=== PATIENT | male | born 1950 | race Caucasian/White ===

== ENCOUNTER 2017-08-09 05:40 | Outpatient (CLI) | payer MEDICARE ==
[~2017-08-09] VITALS: Ht 188 cm; Wt 99.8 kg
[~2017-08-09 05:40] MED LIST: NAPR-243 PO; TRM50T PO
[2017-08-09] MEDS ORDERED: HYDR-3820 PO (15:53)
[2017-08-09] MEDS ORDERED: TAMS0.4C2 PO (15:53)
[2017-08-09] MEDS ORDERED: AMIT50TA3 PO (15:53)
[2017-08-09] MEDS ORDERED: ASPI-999 PO (15:53)
== END 2017-08-09 16:02 ==
LOC: PREOP 05:40
PROVIDERS: ATTEND Urology
DX: Z01.818 Encounter for other preprocedural examination (principal); N40.0 Benign prostatic hyperplasia without lower urinary tract symptoms; N43.3 Hydrocele, unspecified

== ENCOUNTER 2017-08-14 05:52 | Day surgery (SDC) | payer MEDICARE, OTHER ==
[~2017-08-14] VITALS: Ht 188 cm; Wt 99.8 kg
[~2017-08-14 05:52] MED LIST changes: +AMIT50TA3 PO; +ASPI-999 PO; +HYDR-3820 PO; +TAMS0.4C2 PO
[2017-08-14 06:15] VITALS: BP 141/59
[2017-08-14] MEDS ORDERED: ceFAZolin INJECTION 1,000 MG in NS (IVPB) 50 ML IV ONE (06:15)
[2017-08-14] MEDS: LACTATED RINGERS 1,000 ML IV PRN ×2 (06:35→09:03)
[2017-08-14] MEDS ORDERED: proPOfol 200 MG/20 ML (DIPRIVAN) VIAL IV ONE (06:38)
[2017-08-14] MEDS ORDERED: LIDOCAINE PF 2% 5 ML (XYLOCAINE) VIAL ONE (06:38)
[2017-08-14] MEDS ORDERED: MIDAZOLAM 2 MG/2 ML (VERSED) VIAL ONE (06:39)
[2017-08-14] MEDS ORDERED: fentaNYL INJECTION 100 MCG/2 ML AMP ONE (06:39)
[2017-08-14] MEDS ORDERED: ONDANSETRON 4 MG/2 ML (SDV) Z0FRAN ONE (06:40)
[2017-08-14] MEDS ORDERED: SEVOFLURANE (ULTANE) 15 ML INHAL SOLN ONE ×4 (06:40→08:20)
[2017-08-14] MEDS ORDERED: DEXAMETHASONE 10 MG/ML (DECADRON) 1 ML VIAL ONE (06:40)
[2017-08-14] MEDS ORDERED: NEOSPORIN + PAIN RELIEF CREAM 15 GM ONE (07:09)
--- NOTE | 2017-08-14 07:11 | Progress Note-Pre Operative ---
Pre-Operative Progress Note H&P Reviewed The H&P was reviewed, patient examined and no changes noted. Date Seen by Provider: Aug 14, 2017 Time Seen by Provider: 07:11 Date H&P Reviewed: Aug 14, 2017 Time H&P Reviewed: 07:11 Pre-Operative Diagnosis: BPH, POSSIBLE OAB, AND RT HYDROCELE LEONIE LAND MD Aug 14, 2017 7:11 am
[2017-08-14] MEDS ORDERED: LIDOCAINE UROJET 2% GEL 10 ML PKG ONE (07:12)
--- NOTE | 2017-08-14 07:12 | Progress Note-Post Operative ---
Post-Operative Progess Note Surgeon (s)/Production Service Manager (s) Surgeon LEONIE LAND MD Production Service Manager: N/A Pre-Operative Diagnosis BPH, POSSIBLE OAB, AND RT HYDROCELE Post-Operative Diagnosis SAME Procedure & Operative Findings Date of Procedure 08/14/17 Procedure Performed/Findings CYSTOSCOPY AND RT HYDROCELECTOMY Anesthesia Type GENERAL Estimated Blood Loss Estimated blood loss (mL): LESS THAN 50CC Specimens/Packing Specimens Removed RT HYDROCELE SAC Packin/4# TONIA DRAIN LEONIE LAND MD Aug 14, 2017 7:12 am
--- NOTE | 2017-08-14 07:15 | Discharge Inst-Urology ---
Discharge Inst-Urology Discharge Medications New, Converted, or Re-newed RX: RX on Chart Patient Instructions/Follow Up Plan Please make appointment to been seen in office in 2 weeks. Rest till then, scrotal support and off ASA Ice to scrotum in RR and at home for 6 hours and then PRN Office tomorrow 9am to DC drain, may shower after that, no bath Keep bowels soft and moving Increase oral fluids for 48 hours and then as needed. Diet and Activity as tolerated. If questions or concerns contact your physician Or seek help at emergency department. LEONIE LAND MD Aug 14, 2017 7:15 am
[2017-08-14] MEDS ORDERED: ONDANSETRON 4 MG/2 ML (SDV) Z0FRAN IVP PRN (08:30)
[2017-08-14] MEDS ORDERED: morphine INJ 10 MG/ML 1ML (SYR OR VIAL) ONE (08:33)
[2017-08-14] MEDS: morphine INJ 10 MG/ML 1ML (SYR OR VIAL) IVP PRN ×2 (08:40→08:50)
[2017-08-14] MEDS: HYDROmorphone 1 MG/ML (DILAUDID) 1 ML SYRINGE IV PRN ×2 (08:59→09:10)
[2017-08-14 09:25] VITALS: BP 140/86
[2017-08-14] MEDS ORDERED: HYDR-3812 PO (09:34)
[2017-08-14] MEDS ORDERED: CEPH-507 PO (09:34)
[2017-08-14 09:55] VITALS: BP 133/98
--- NOTE | 2017-08-14 10:20 | Anesthesia-General Post-Op ---
General Patient Condition Mental Status/LOC: Same as Preop Cardiovascular: Satisfactory Nausea/Vomiting: Absent Respiratory: Satisfactory Pain: Controlled Complications: Absent Post Op Complications Complications None Follow Up Care/Instructions Patient Instructions None needed. Anesthesia/Patient Condition Patient Condition Patient is doing well, no complaints, stable vital signs, no apparent adverse anesthesia problems. No complications reported per nursing. RADHA TOURE CRNA Aug 14, 2017 10:20
[2017-08-14 10:25] VITALS: BP 134/77
--- NOTE | 2017-08-14 14:23 | OPERATIVE REPORT ---
DATE OF SERVICE: 08/14/2017 PREOPERATIVE DIAGNOSES: 1. Benign prostatic hypertrophy, possible overactive bladder. 2. Right hydrocele "moderate." OPERATION PERFORMED: Cystoscopy and right hydrocelectomy. SURGEON: Dejon Land MD ANESTHESIA: General. COMPLICATIONS: None. DESCRIPTION OF PROCEDURE: Under satisfactory general anesthesia, the patient in supine position, genitalia were prepped and draped in the usual sterile fashion. Flexible cystoscope was introduced under vision. The anterior urethra was normal. The prostate was small with mild bladder neck obstruction. Bladder revealed some trabeculations. No bladder tumor or stone visualized. Ureteral orifices normal limits with clear effluxes. Cystoscopy was confirmed in antegrade fashion and the cystoscope was removed. Attention was directed to the hydrocele. The genitalia, abdomen and thigh were prepped and draped in the sterile fashion. An incision was made in the median raphe, carried through the right scrotal compartment. Bleeders were cauterized as the dissection was proceeded. A moderate amount of fluid was suctioned and the hydrocele sac was excised. The edges were sutured with a running hemostatic 3-0 chromic catgut to prevent recurrence as well. Hemostasis was complete. The testicle was replaced inside the scrotum that was drained with the quarter of an inch Louann drain, brought through a separate stab wound at the bottom of the scrotum, secured in position with a 3-0 chromic catgut suture. The dartos was closed with a running 3-0 chromic catgut and the skin with interrupted 4-0 Vicryl. Telfa and fluffs and scrotal support was applied. The patient tolerated the procedure and anesthesia well, was sent to recovery room in stable condition. Job ID: [id number] DocumentID: [id number] Dictated Date: 08/14/2017 08:36:33 Cotton Classer Aide Date: 08/14/2017 14:23:10 Dictated By: DEJON LAND MD
== END 2017-08-14 10:27 | disposition home or self-care (01) ==
LOC: SDC 05:52
PROVIDERS: ATTEND Urology
DX: N43.3 Hydrocele, unspecified (principal); N40.0 Benign prostatic hyperplasia without lower urinary tract symptoms; R01.1 Cardiac murmur, unspecified; Z86.73 Personal history of transient ischemic attack (TIA), and cerebral infarction without residual deficits; Z87.891 Personal history of nicotine dependence; Z79.82 Long term (current) use of aspirin; Z79.899 Other long term (current) drug therapy
CPT/HCPCS: 87081

== ENCOUNTER → 2017-12-31 | Outpatient (CLI) | payer MEDICARE ==
[~2017-12-31] MED LIST changes: +CEPH-507 PO; +HYDR-3812 PO
--- NOTE | 2017-12-31 11:30 | Diagnostic Imaging Report ---
INDICATION: Screening for abdominal aortic aneurysm. FINDINGS: The proximal abdominal aorta measures 2.2 cm transverse x 2.4 cm AP. The mid abdominal aorta is obscured by bowel gas. The distal abdominal aorta measures 2.3 cm transverse x 1.7 cm AP. The iliacs are obscured by bowel gas. IMPRESSION: No evidence of abdominal aortic aneurysm. Dictated by: Dictated on workstation # [id number]
== END ==
LOC: RAD 07:46
PROVIDERS: ATTEND Family Medicine
DX: Z12.2 Encounter for screening for malignant neoplasm of respiratory organs (principal); Z87.891 Personal history of nicotine dependence
CPT/HCPCS: 76775

== ENCOUNTER → 2019-01-07 | Outpatient (CLI) | payer MEDICARE ==
--- NOTE | 2019-01-07 11:07 | Diagnostic Imaging Report ---
EXAMINATION: CT Chest without contrast (lung screening). TECHNIQUE: Multiple contiguous axial images were obtained through the chest without the use of intravenous contrast according to lung cancer screening protocol. All CT scans use one or more of the following dose optimizing techniques: automated exposure control, MA and/or KvP adjustment based on a patient size and exam type, or iterative reconstruction. HISTORY: 30 pack year history of smoking. COMPARISON: 12/31/2017. FINDINGS: The lungs are clear without edema or pneumonia. No pleural effusion or pneumothorax. There is a stable 7 mm left lower lobe pulmonary nodule. Lungs are moderately emphysematous. Heart size is normal. No pericardial effusion. Aorta is normal in caliber. There is no axillary or supraclavicular lymphadenopathy. There is no mediastinal lymphadenopathy. Limited views of the upper abdomen are normal. There are no suspicious osseous lesions. IMPRESSION: 1. No suspicious pulmonary nodules. Stable 7 mm left lower lobe nodule can be considered benign. LUNG-RADS CATEGORY: 2 MODIFIER: None. OTHER SIGNIFICANT FINDINGS: None. Dictated by: Dictated on workstation # [id number]
== END ==
LOC: RAD 09:45
PROVIDERS: ATTEND Family Medicine
DX: Z12.2 Encounter for screening for malignant neoplasm of respiratory organs (principal); R91.1 Solitary pulmonary nodule; F17.210 Nicotine dependence, cigarettes, uncomplicated

== ENCOUNTER 2019-05-04 19:11 | Emergency (ER) | payer OTHER, MEDICARE ==
[~2019-05-04] VITALS: Ht 185 cm; Wt 102.0 kg
[~2019-05-04 19:11] MED LIST changes: +ACHD5005 PO; +ACHYD1T PO; -HYDR-3812 PO; -HYDR-3820 PO
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
[2019-05-04] MEDS ORDERED: TETANUS,DIPTH,PERTUSS P/F (BOOSTRIX) 0.5 ML VIAL IM ONE (19:30)
[2019-05-04 19:36] VITALS: BP 133/81
== END 2019-05-04 19:36 | disposition home or self-care (01) ==
LOC: EDUNIT# 19:11 → ER 19:14
DX: S61.412A Laceration without foreign body of left hand, initial encounter (principal); S50.812A Abrasion of left forearm, initial encounter; I10 Essential (primary) hypertension; R40.2142 Coma scale, eyes open, spontaneous, at arrival to emergency department; R40.2252 Coma scale, best verbal response, oriented, at arrival to emergency department; R40.2362 Coma scale, best motor response, obeys commands, at arrival to emergency department; Z23 Encounter for immunization; Z86.73 Personal history of transient ischemic attack (TIA), and cerebral infarction without residual deficits; Z87.891 Personal history of nicotine dependence; V43.52XA Car driver injured in collision with other type car in traffic accident, initial encounter
CPT/HCPCS: 90715; 99284

== ENCOUNTER 2019-07-24 09:07 | Outpatient (RCR) | payer MEDICARE ==
[~2019-07-24] VITALS: Ht 188 cm; Wt 104.1 kg
[~2019-07-24 09:07] MED LIST changes: +AMIT100T2 PO; +ATOR40TA70 PO; +LISI10TA2 PO; +PREG100C PO
== END 2019-07-24 15:38 | disposition home or self-care (01) ==
LOC: PREOP 09:07
PROVIDERS: ATTEND Surgery
DX: Z01.818 Encounter for other preprocedural examination (principal); Z11.59 Encounter for screening for other viral diseases
CPT/HCPCS: 87635

== ENCOUNTER 2019-11-04 20:40 | Outpatient (CLI) | payer MEDICARE, MEDICAID | END 2019-11-05 06:05 | disposition home or self-care (01) | LOC: SLEEP 20:40 | PROVIDERS: ATTEND Nurse Practitioner Family | DX: G47.61 Periodic limb movement disorder (principal); I10 Essential (primary) hypertension; G47.10 Hypersomnia, unspecified; G89.29 Other chronic pain; Z86.73 Personal history of transient ischemic attack (TIA), and cerebral infarction without residual deficits | CPT/HCPCS: 95810 ==

== ENCOUNTER → 2020-01-09 | Outpatient (CLI) | payer MEDICARE, MEDICAID ==
--- NOTE | 2020-01-09 09:22 | Diagnostic Imaging Report ---
EXAMINATION: CT Chest without contrast (lung screening). TECHNIQUE: Multiple contiguous axial images were obtained through the chest without the use of intravenous contrast according to lung cancer screening protocol. All CT scans use one or more of the following dose optimizing techniques: automated exposure control, MA and/or KvP adjustment based on a patient size and exam type, or iterative reconstruction. HISTORY: 15-usuc-eudr history of smoking. COMPARISON: 01/07/2019. FINDINGS: There is no edema or pneumonia. No pleural effusion. No pneumothorax. No suspicious nodules. Mucous is present in the trachea. There is no axillary or supraclavicular lymphadenopathy. There is no mediastinal lymphadenopathy. Heart size is normal. There are mild coronary artery calcifications. No pericardial effusion. Aorta is normal in caliber. Limited views of the upper abdomen are unremarkable. There are no suspicious osseous lesions. IMPRESSION: 1. No suspicious pulmonary nodules. LUNG-RADS CATEGORY: 1 MODIFIER: None. Dictated by: Dictated on workstation # [id number]
== END ==
LOC: RAD 09:15
PROVIDERS: ATTEND Family Medicine
DX: Z12.2 Encounter for screening for malignant neoplasm of respiratory organs (principal); Z87.891 Personal history of nicotine dependence

== ENCOUNTER → 2020-04-07 | Outpatient (CLI) | payer MEDICARE, MEDICAID ==
--- NOTE | 2020-04-07 09:52 | Diagnostic Imaging Report ---
PROCEDURE: MRI left joint lower extremity without contrast. TECHNIQUE: Multiplanar, multisequence noncontrast enhanced MRI of the left lower extremity was accomplished. INDICATION: Left knee pain and multiple falls, wear and tear. COMPARISON: None. FINDINGS: No acute fracture is seen in the left knee. Alignment is normal. There is mild subchondral edema in the medial compartment which is likely degenerative. There is a moderate left knee joint effusion with a small Hull's cyst. The articular cartilage in the patellofemoral compartment demonstrates mild thinning and heterogeneity. There is full-thickness cartilage loss throughout the weightbearing medial compartment. Lateral compartment demonstrates thinning with surface irregularity and heterogeneity. There is extensive complex tearing and maceration throughout the medial meniscus, particularly the posterior horn and body. The lateral meniscus demonstrates degeneration and partial tearing at the free edge of the posterior root. The anterior cruciate ligament is not well seen distally on the PD fat-sat images but this is thought to be due to artifact as it appears to be intact on the T2 dedicated ACL images. The posterior cruciate ligament is intact. The medial collateral ligament is intact. The lateral collateral ligamentous complex is intact. The extensor mechanism is intact. The medial and lateral retinacula appear intact. There is fluid in the popliteal recess. IMPRESSION: 1. Tricompartmental degenerative changes and cartilage loss, most severe in the medial compartment. 2. Extensive tearing and maceration of the medial meniscus. Degeneration and partial tearing at the posterior lateral meniscus. 3. Moderate left knee joint effusion with a small Hull's cyst. Dictated by: Dictated on workstation # [id number]
== END ==
LOC: RAD 08:00
PROVIDERS: ATTEND Nurse Practitioner Family
DX: S83.232A Complex tear of medial meniscus, current injury, left knee, initial encounter (principal); S83.282A Other tear of lateral meniscus, current injury, left knee, initial encounter; M17.12 Unilateral primary osteoarthritis, left knee; M71.22 Synovial cyst of popliteal space [Baker], left knee; W19.XXXA Unspecified fall, initial encounter
CPT/HCPCS: 73721

== ENCOUNTER 2020-08-27 05:42 | Outpatient (RCR) | payer MEDICARE, MEDICAID ==
[2020-08-25 11:27] VITALS: BP 146/65
[2020-08-25 12:07] LABS: BASOPHILS % (AUTO) 0 % (0-10); EOSINOPHILS # (AUTO) 0.1 10^3/uL (0.0-0.3); EOSINOPHILS % (AUTO) 2 % (0-10); HEMATOCRIT 40 % (40-54); HEMOGLOBIN 13.7 g/dL (13.3-17.7); LYMPHOCYTES # (AUTO) 1.4 10^3/uL (1.0-4.0); LYMPHOCYTES % (AUTO) 27 % (12-44); MEAN CORPUSCULAR HEMOGLOBIN 30 pg (25-34); MEAN CORPUSCULAR HGB CONC 34 g/dL (32-36); MEAN CORPUSCULAR VOLUME 87 fL (80-99); MEAN PLATELET VOLUME 9.6 fL (9.0-12.2); MONOCYTES # (AUTO) 0.6 10^3/uL (0.0-1.0); MONOCYTES % (AUTO) 12 % (0-12); NEUTROPHILS # (AUTO) 2.8 10^3/uL (1.8-7.8); NEUTROPHILS % (AUTO) 57 % (42-75); PLATELET COUNT 221 10^3/uL (130-400)
[2020-08-25 12:16] LABS: ALBUMIN 3.8 GM/DL (3.2-4.5)
[2020-08-25 12:17] LABS: CHLORIDE 108 MMOL/L (98-107); POTASSIUM 4.1 MMOL/L (3.6-5.0); PROTHROMBIN TIME PATIENT 13.1 SEC (12.2-14.7); SODIUM 139 MMOL/L (135-145)
[2020-08-25 12:18] LABS: CALCIUM 8.8 MG/DL (8.5-10.1)
[2020-08-25 12:19] LABS: GLUCOSE 141 MG/DL (70-105); TOTAL PROTEIN 6.8 GM/DL (6.4-8.2)
[2020-08-25 12:20] LABS: CARBON DIOXIDE 22 MMOL/L (21-32)
[2020-08-25 12:21] LABS: BILIRUBIN,TOTAL 0.4 MG/DL (0.1-1.0)
[2020-08-25 12:22] LABS: ALKALINE PHOSPHATASE 77 U/L (40-136)
[2020-08-25 12:23] LABS: CREATININE SERUM 0.96 MG/DL (0.60-1.30); GFR ESTIMATED > 60
[2020-08-25 12:23] LABS: BILIRUBIN,URINE NEGATIVE (NEGATIVE); CLARITY,URINE CLEAR; COLOR,URINE YELLOW; GLUCOSE, URINE (UA) NEGATIVE (NEGATIVE); KETONES,URINE NEGATIVE (NEGATIVE); LEUKOCYTE ESTERASE ,URINE NEGATIVE (NEGATIVE); NITRITE,URINE NEGATIVE (NEGATIVE); PROTEIN,URINE NEGATIVE (NEGATIVE)
[2020-08-25 12:24] LABS: BUN/CREATININE RATIO 15
[2020-08-25 12:26] LABS: ALANINE AMINOTRANSFERASE 30 U/L (0-55)
[2020-08-25 12:28] LABS: ERYTHROCYTE SEDIMENTATION RATE 7 MM/HR (0-30)
[2020-08-25 13:25] LABS: BACTERIA,URINE NEGATIVE /HPF; SQUAMOUS EPITHELIAL CELL,UR RARE /HPF; WBC,URINE RARE /HPF
--- NOTE | 2020-08-25 13:41 | Diagnostic Imaging Report ---
INDICATION: Preop screening. FINDINGS: The heart size, mediastinal configuration, and pulmonary vascularity are within normal limits. There is no pleural effusion, pneumothorax, or pneumonia. The osseous structures are unremarkable. IMPRESSION: No acute cardiopulmonary abnormality. Dictated by: Dictated on workstation # [id number]
[~2020-08-27] VITALS: Ht 182.9 cm; Wt 109.1 kg
[~2020-08-27 05:42] MED LIST changes: -LISI10TA2 PO; +LISI10TA25 PO
== END 2020-08-27 12:16 | disposition home or self-care (01) ==
LOC: PREOP 05:42
PROVIDERS: ATTEND Orthopaedic Surgery
DX: Z01.812 Encounter for preprocedural laboratory examination (principal); M17.12 Unilateral primary osteoarthritis, left knee
CPT/HCPCS: 36415; 71046; 80053; 81000; 85025; 85610; 85652; 86850; 86900; 86901; 87081; 87635

== ENCOUNTER 2020-09-01 07:32 | Inpatient (IN) | payer MEDICARE, MEDICAID ==
--- NOTE | 2020-08-25 03:58 | HISTORY AND PHYSICAL ---
DATE OF SERVICE: ADMISSION HISTORY AND PHYSICAL DATE OF ADMISSION: 09/01/2020. This will be for inpatient admission on 09/01/2020 for left total knee arthroplasty. The patient will require regular inpatient admission due to associated comorbidities, pain management and need for physical therapy. HISTORY OF PRESENT ILLNESS: The patient is a 69-year-old gentleman with complaints of progressively worsening left knee pain. He reports a severe history of pain. He has undergone treatment with injections without relief. He reports functional impairment in the knee and activity limitations because of the knee. Radiographs revealed severe medial and patellofemoral arthrosis and due to functional impairment and failure to improve with conservative measures. The patient elected to proceed with surgical intervention. REVIEW OF SYSTEMS: No chest pain, no shortness of breath, no dysuria. PAST MEDICAL HISTORY: Cerebrovascular accident, hypertension, osteoarthritis, hypercholesterolemia, sleep apnea. PAST SURGICAL HISTORY: Appendectomy. FAMILY HISTORY: Unknown. PRIMARY CARE PROVIDER: Dr. Willoughby. MEDICATIONS: Hydrocodone, Lyrica, amitriptyline, lisinopril, atorvastatin. ALLERGIES: No known drug allergies. SOCIAL HISTORY: The patient is a former smoker and denies alcohol use. PHYSICAL EXAMINATION: GENERAL: The patient is well-developed, well-nourished, in no acute distress. HEENT: Normocephalic, atraumatic. Pupils are equal, round, reactive to light. Oropharynx is clear. NECK: Supple, no lymphadenopathy. LUNGS: Clear to auscultation bilaterally. HEART: Regular rate and rhythm. ABDOMEN: Soft, nontender, nondistended. EXTREMITIES: The left knee demonstrates an antalgic gait with ambulation. He has a moderate effusion. He has varus alignment with range of motion of 0/3/120. There is no varus valgus laxity. He has negative anterior and posterior drawer. He is tender along his medial joint line, he has pain medially with Ron's. IMPRESSION: Severe left knee osteoarthritis, unresponsive to conservative measures. PLAN: Left total knee arthroplasty. The risks, benefits, options, ramifications and recovery have been discussed at length with the patient. He understands and wishes to proceed. Job ID: [id number] DocumentID: [id number] Dictated Date: 08/18/2020 10:08:58 Data Security Analyst Date: 08/18/2020 10:31:21 Dictated By: MIRTHA SANDRA MD
[2020-09-01] VITALS (10 sets, daily range): BP systolic 120–166; BP diastolic 61–79
[~2020-09-01] VITALS: Ht 182 cm; Wt 109.1 kg
[~2020-09-01 07:32] MED LIST changes: +ACETAMINOPHEN 325 MG TABLET PO PRN; +NS IV 1000 ML 1,000 ML IV SCH; +ONDANSETRON 4 MG/2 ML (SDV) Z0FRAN IVP PRN; +diphenhydrAMINE 50 MG/ML INJ (BENADRYL) IVP PRN; +morphine PCA 100 MG/100 ML BAG IV PRN
[2020-09-01] MEDS ORDERED: INTRA-ARTICULAR IU ONE ×5 (07:45)
[2020-09-01] MEDS ORDERED: CEFUROXIME 1,500 MG/SWFI 15 ML IV PUSH IV ONE ×2 (07:45)
[2020-09-01] MEDS ORDERED: ROPIVACAINE 5MG/ML 30ML VIAL ONE (07:52)
[2020-09-01] MEDS ORDERED: MIDAZOLAM 2 MG/2 ML (VERSED) VIAL ONE (07:52)
[2020-09-01] MEDS ORDERED: CEFUROXIME INJECTION 1,500 MG in WATER (STERILE) FOR INJECTION 15 ML IV ONE (08:15)
[2020-09-01] MEDS ORDERED: LIDOCAINE PF 2% 5 ML (XYLOCAINE) VIAL ONE ×2 (08:17→09:54)
[2020-09-01] MEDS ORDERED: fentaNYL INJ 100 MCG/2 ML AMP ONE (08:23)
[2020-09-01] MEDS ORDERED: ASPI-999 PO (08:25)
[2020-09-01] MEDS: LACTATED RINGERS 1,000 ML IV PRN ×2 (08:33→09:40)
[2020-09-01] MEDS ORDERED: TRANEXAMIC ACID 100 MG/ML 10 ML INJECTION ONE (08:49)
[2020-09-01] MEDS ORDERED: SENNA W/DOCUSATE (SENOKOT S) TABLET PO SCH ×2 (09:00→21:00)
--- NOTE | 2020-09-01 09:11 | Progress Note-Pre Operative ---
Pre-Operative Progress Note H&P Reviewed The H&P was reviewed, patient examined and no changes noted. Date Seen by Provider: Sep 01, 2020 Time Seen by Provider: 09:05 Date H&P Reviewed: Sep 01, 2020 Time H&P Reviewed: 07:11 Pre-Operative Diagnosis: left knee primary osteoarthritis MIRTHA SANDRA MD Sep 01, 2020 09:11
--- NOTE | 2020-09-01 09:12 | Progress Note-Post Operative ---
Post-Operative Progess Note Surgeon (s)/Enrollment Processor (s) Surgeon MIRTHA SANDRA MD Enrollment Processor: Khai Talavera Pre-Operative Diagnosis left knee primary osteoarthritis Post-Operative Diagnosis left knee primary osteoarthritis Procedure & Operative Findings Date of Procedure 09/01/20 Procedure Performed/Findings left total knee arthroplasty Anesthesia Type GETA Estimated Blood Loss Estimated blood loss (mL): minimal Specimens/Packing Specimens Removed none Packing: none MIRTHA SANDRA MD Sep 01, 2020 09:12
[2020-09-01] MEDS ORDERED: ONDANSETRON 4 MG/2 ML (SDV) Z0FRAN IVP PRN (09:15)
[2020-09-01] MEDS ORDERED: HYDROmorphone 2 MG/ML VIAL (DILAUDID) IV ONE (09:15)
[2020-09-01] MEDS ORDERED: morphine INJ 10 MG/ML 1ML (SYR OR VIAL) IVP ONE (09:15)
--- NOTE | 2020-09-01 09:16 | D/C HH Face to Face Order ---
D/C Face to Face Orders Reconcile Patient Problems Problems Reviewed?: Yes Instructions for Patient Via Meme Taketake, Patient Instructions/FollowUp: three weeks Physician to follow Patient: three weeks Discharge Diet for Home: Regular Diet Patient Data-Allergies,Ht & Wt Patient Allergies: Coded Allergies: No Known Drug Allergies (Unverified , 05/04/19) Height (Feet): 6 Height (Inches): 2.00 Weight (Pounds): 220 Weight (Ounces): 0.0 Home Health Need/Face to Face Date of Face to Face: Sep 01, 2020 Clinical Findings: Instability, Muscle weakness, Pain with ambulation, Unsteady gait I have seen Pt [id number]: Yes Discharged To: Home Diagnosis/Conditions: left total knee arthroplasty Patient is Homebound due to: Chapo fall risk due to instabilty, Muscle weakness, Pain w/ambulation Homebound Status Due to the above stated illness, injury or surgical procedure (medical condition or diagnosis) and associated clinical findings, the patient is homebound because of his/her inability to leave home except with aid of a supportive device and/or person AND leaving the home requires a considerable and taxing effort or is medically contraindicated. Pt req the following assistanc: Walker Home Health Nursing Orders Home Health Services Order: Physical Therapy-Evaluate & Treat DC left knee nita and apply steri strips 09/15/20 Home Health Infusion Therapy Line Start Date: Sep 01, 2020 Therapy Orders Therapy Orders: Physical Therapy, PT to assess for OT Therapy Specific Orders: Eval assistive deivces, Gait training, Increase strength/endurance, Provider maintenance therapy, Restore ROM Certify Stmt I certify that this patient is under my care and that I, a nurse practitioner or a physician; a accounting manager assistant controller working with me, had a face to face encounter that - meets the physician face to face encounter requirements with this patient as dated. MIRTHA SANDRA MD Sep 01, 2020 09:16
[2020-09-01] MEDS ORDERED: ROCURONIUM 10 MG/ML 5 ML SYRINGE IV ONE (09:17)
[2020-09-01] MEDS ORDERED: GLYCOPYRROLATE 0.2 MG/ML (ROBINUL) 2 ML VIAL ONE (09:32)
[2020-09-01] MEDS ORDERED: NEOSTIGMINE 3 MG/3 ML VIAL ONE (09:32)
[2020-09-01] MEDS ORDERED: HYDROmorphone 2 MG/ML VIAL (DILAUDID) ONE (10:02)
[2020-09-01] MEDS ORDERED: SEVOFLURANE (ULTANE) 15 ML INHAL SOLN ONE (11:00)
--- NOTE | 2020-09-01 12:27 | Progress Note ---
Standard Progress Note Progress Notes/Assess & Plan Date Seen by a Provider: Sep 01, 2020 Time Seen by a Provider: 11:00 Progress/Assessment & Plan post op check no complaints radiographs--hw well positioned without fracture LLE--2 plus dp pulse with brisk refill. sensation intact throughout. intact DF and PF of the toes and ankle s/p LTKA mobilize as able MIRTHA SANDRA MD Sep 01, 2020 12:27
--- NOTE | 2020-09-01 13:44 | OPERATIVE REPORT ---
DATE OF SERVICE: 09/01/2020 PREOPERATIVE DIAGNOSIS: Left knee primary osteoarthritis. POSTOPERATIVE DIAGNOSIS: Left knee primary osteoarthritis. PROCEDURE: Left total knee arthroplasty. SURGEON: Ricardo Sandra MD RESIDENTIAL INSURANCE INSPECTOR: Khai Talavera, who assisted throughout the procedure and closed the incision. ANESTHESIA: General endotracheal by Dr. Walker. TOURNIQUET TIME: Approximately 75 minutes at 300 mmHg. ESTIMATED BLOOD LOSS: Minimal. DRAINS: None. COMPLICATIONS: None. POSTOPERATIVE PLAN: Routine protocol. The patient was transferred to the recovery room awake and in stable condition. MATERIALS: Microport cemented 6 femur, cemented 6 tibia with 10 mm insert and cemented size 35 patellar button. STATEMENT OF MEDICAL NECESSITY: The patient is a 69-year-old gentleman with longstanding progressive left knee pain. Radiographs revealed severe tricompartmental osteoarthritis. He had undergone treatment with injections, anti-inflammatories and rest without relief. Due to functional impairment and failure to improve with conservative measures, the patient elected to proceed with surgical intervention. DESCRIPTION OF PROCEDURE: After risks and benefits of procedure were discussed and questions were answered, an informed consent was signed and placed on chart, the operative site was confirmed in the preoperative holding area initialed by the surgeon. The patient was then transferred to the operating room and after adequate levels of general endotracheal anesthetic were obtained, a timeout was called, confirming the operative site. The left lower extremity was prepped and draped in the usual sterile fashion with the leg elevated and the knee flexed, tourniquet was inflated to 300 mmHg. A standard anterior approach was utilized. Hemostasis was obtained with cautery. Medial parapatellar arthrotomy was performed leaving 1 cm cuff on the patella for later reattachment. A portion of the fat pad was resected. The patellar cut was made using the freehand technique and resecting 10 mm off the undersurface. The ACL was resected. Subperiosteal release was performed in the proximal medial tibia being careful to stay on the bony surface. The ACL was resected. Intramedullary guide was passed into the femur and the distal cut was made. Femur sized to a size 6 and 6 cutting block was placed parallel to the epicondylar axis and cuts were made from posterior to anterior. The subperiosteal release was then carefully performed on posterior distal femur, being careful to stay on the bony surface. Intramedullary guide was then passed into the tibia. The cutting block was placed. The drop mickey transected the intermalleolar axis and the cut was made, a 6 baseplate provided excellent coverage. The drop mickey transected the intermalleolar axis. This was prepared with the drill and keel punch. The femoral trial was placed and the trochlear cut was made, 10 mm insert was placed. The patella was then prepared with the peg guide. The peg holes were drilled. A 35 button was placed and the knee was taken through range of motion. Full extension was easily obtained, 120 degrees of flexion with gravity was easily obtained. There was no anterior/posterior or medial/lateral laxity in flexion or extension. The patella tracked well. The trials were removed. The joint was irrigated with pulse lavage. Periarticular block was placed in the posterior capsule, medial and lateral retinaculum extensor mechanism, subcutaneous tissues. The bone ends were irrigated and dried. The tibial baseplate was cemented into position. Excessive cement was removed, the superior surface was irrigated and dried and the polyethylene insert was placed. Distal femur was irrigated and dried and the femoral prosthesis was cemented into position. Excessive cement was removed. The knee was brought out into full extension until cement had cured. The undersurface of patella was irrigated and dried. The patellar button was cemented into position. Once the cement had cured, the knee was taken through range of motion. Full extension was easily obtained, 120 degrees of flexion with gravity was obtained. There was no anterior/posterior or medial/lateral laxity in flexion or extension and the patella tracked well. The joint was further irrigated with pulse lavage. Arthrotomy was closed with #2 Tevdek in vdzdvz-dy-sumar interrupted fashion. The knee was flexed. The repair was stable. Subcutaneous tissues were irrigated using a total of 6 liters throughout the procedure. A 0 Vicryl was used to deep subcutaneous tissue, 2-0 Vicryl for the superficial subcutaneous tissue, nita used on the skin. The tourniquet was deflated after applying a soft dressing and the patient was transferred to the recovery room awake and in stable condition. Job ID: [id number] DocumentID: [id number] Dictated Date: 09/01/2020 11:05:12 Ruling Machine Set Up Operator Date: 09/01/2020 13:43:23 Dictated By: RICARDO SANDRA MD
--- NOTE | 2020-09-01 13:57 | Diagnostic Imaging Report ---
INDICATION: Postop left knee replacement. AP and lateral views of the left knee are obtained at 11:27 a.m. FINDINGS: Left knee prosthesis appears in good alignment with no sign of fracture or device loosening. There is no unexpected foreign body post surgery. IMPRESSION: Well-aligned new left knee prosthesis with no unexpected foreign body post surgery. Dictated by: Dictated on workstation # [id number]
--- NOTE | 2020-09-01 14:32 | Physical Therapy Evaluation ---
PT Evaluation-General Medical Diagnosis Admission Date Sep 01, 2020 at 07:32 Medical Diagnosis: left TKA Onset Date: Sep 01, 2020 Therapy Diagnosis Therapy Diagnosis: impaired mobility, strength, endurance, ROM Height/Weight Height (Feet): 6 Height (Inches): 2.00 Weight (Pounds): 220 Weight (Ounces): 0.0 Weight Bear Status Left Lower Extremity: Left Weight Bearing/Tolerated Referral Physician: Ilan Reason for Referral: Evaluation/Treatment Medical History Additional Medical History PAST MEDICAL HISTORY: Cerebrovascular accident, hypertension, osteoarthritis, hypercholesterolemia, sleep apnea. PAST SURGICAL HISTORY: Appendectomy. Reviewed History: Yes Social History Current Living Status: Spouse Entry Into Home: Stairs With Railing PT Steps Into Home: 6 Prior Prior Level of Function SCALE: Activities may be completed with or without assistive devices. 2-Ytqccjwpsc-tqhkzzc completes the activity by him/herself with no assistance from a helper. 5-Set-up or Clean-up Assistance-helper sets up or cleans up; patient completes activity. [place] assists only prior to or following the activity. 4-Supervision or Touching Assistance-helper provides verbal cues and/or touching/steadying and/or contact guard assistance as patient completes activity. Assistance may be provided throughout the activity or intermittently. 3-Partial/Moderate Assistance-helper does LESS THAN HALF the effort. [place] lifts, holds or supports trunk or limbs, but provides less than half the effort. 2-Substantial/Maximal Assistance-helper does MORE THAN HALF the effort. [place] lifts or holds trunk or limbs and provides more than half the effort. 2-Bdfabthlh-cqsnfu does ALL the effort. Patient does none of the effort to complete the activity. Or, the assistance of 2 or more helpers is required for the patient to complete the activity. If activity was not attempted, code reason: 7-Patient Refused. 9-Not Applicable-not attempted and the patient did not perform the activity before the current illness, exacerbation or injury. 10-Not Attempted due to Environmental Limitations-(lack of equipment, weather restraints, etc.). 88-Not Attempted due to Medical Conditions or Safety Concerns. Bed Mobility: 6 Transfers (B,C,W/C): 6 Gait: 6 Stairs: 6 Indoor Mobility (Ambulation): Independent Stairs: Independent PT Evaluation-Current Subjective Patient in bed pre tx, agrees to PT, has no complaints of pain, says his left leg is still pretty numb, patient cannot dorsiflex foot yet. Pt/Family Goals to be independent at home Objective Patient Orientation: Person, Place, Situation Attachments: IV ROM/Strength ROM Lower Extremities left knee flexion 90 degrees, extension +5 degrees Sensory Hearing: Functional Sensation Right Lower Extremit: Intact Sensation Left Lower Extremity: Impaired Transfers Roll Left to Right (QC): 6 Sit to Lying (QC): 6 Lying to Sitting/Side of Bed(Q: 6 Sit to Stand (QC): 4 Chair/Wwb-ug-Spmox Xfer(QC): 4 Gait Does the Patient Walk?: Yes Mode of Locomotion: Walk Anticipated Mode of Locomotion: Walk Walk 10 feet (QC): 4 Distance: 30' Gait Assistive Device: FWW Comments/Gait Description Patient ambulated to the restroom and back to his bed, CGA, steady ambulation, good step through Balance Sitting Static: Normal Sitting Dynamic: Normal Standing Static: Good Standing Dynamic: Good Treatment supine LLE TKA protocol x10 (AP, QS, HS, SAQ, SLR), CPM donned and set to 60/-2 and fit to leg Assessment/Needs Patient has impaired mobility, strength, endurance, ROM. Patient in bed post tx with nurse call, phone, tray, CPM donned, polar care on. Patient's left leg is still pretty numb but should improve, he is able to bear weight on his left knee without buckling. Rehab Potential: Fair PT Senior National Account Manager Goals Senior National Account Manager Goals PT Senior National Account Manager Goals Time Frame: Sep 08, 2020 Roll Left & Right (QC): 6 Sit to Lying (QC): 6 Lying-Sitting on Side/Bed(QC): 6 Sit to Stand (QC): 6 Chair/Utd-fe-Hacch Xfer(QC): 6 Toilet Transfer (QC): 6 Walk 10 feet (QC): 6 Walk 50ft with 2 Turns (QC): 6 Walk 150 ft (QC): 6 1 Step (curb) (QC): 6 4 Steps (QC): 6 PT Plan Problem List Problem List: Activity Tolerance, Functional Strength, Safety, Balance, Gait, Transfer, Bed Mobility, ROM Treatment/Plan Treatment Plan: Continue Plan of Care Treatment Plan: Bed Mobility, Education, Functional Activity Carlo, Functional Strength, Gait, Safety, Therapeutic Exercise, Transfers Treatment Duration: Sep 08, 2020 Frequency: 11 times per week Estimated Hrs Per Day: .25 hour per day Patient and/or Family Agrees t: Yes Safety Risks/Education Patient Education: Gait Training, Transfer Techniques, Reviewed Use of Ice, Correct Positioning, Safety Issues Teaching Recipient: Patient Teaching Methods: Demonstration, Discussion Response to Teaching: Reinforcement Needed Discharge Recommendations Plan Patient will perform bed mobility and transfer training, balance and endurance training, functional strengthening, stair training, gait training, and education, to improve functional mobility and independence at home. Therapy Discharge Recommendati: Home & Family Time/GCodes Time In: 1341 Time Out: 1358 Total Billed Treatment Time: 17 Total Billed Treatment 1 visit EVL 17' WILIAN CRUZ PT Sep 01, 2020 14:32
[2020-09-01] MEDS: NS IV 1000 ML 1,000 ML IV SCH (14:48)
[2020-09-01] MEDS: CEFUROXIME INJECTION 750 MG in WATER (STERILE) FOR INJECTION 10 ML IV SCH ×2 (15:56→22:33)
--- NOTE | 2020-09-01 17:49 | Consultation ---
HPI History of Present Illness: This is Oscar, a 69 yo M, who is here S/P L total knee replacement. Pt states that he is doing well, denies any pain currently. States that he does have xerostomia. He has not had any water today and has had 2 cups of coffee. Asked to see patient for medical consult. Patient has no concerns today. States that he is feeling well after surgery. H/o HTN but blood pressures have been normotensive, will hold olff on restarting home meds at this time. Source: patient Exam Limitations: no limitations Date seen by provider: Sep 01, 2020 Time Seen by Provider: 05:30 Attending Physician Ricardo Shepard MD PCP Devin Willoughby MD Consult Date of Admission Sep 01, 2020 at 07:32 Home Medications Home Medications Reviewed patient Home Medication Reconciliation performed by pharmacy medication reconciliations roof technician and/or nursing. Patients Allergies have been reviewed. Allergies Coded Allergies: No Known Drug Allergies (Unverified , 05/04/19) XMM-Qqdvzy-Uiqseg Hx Patient Social History Marrital Status: Living Status: Lives at home with Employed/Student: retired Smoking Status: Former Smoker Recent Hopitalizations: No Alcohol Use?: No Have you traveled recently?: No Immunizations Up To Date Date of Influenza Vaccine: Nov 28, 2019 Past Medical History HTN HLD Peripheral Neuropathy Hyperlipidemia Hyptertension Neuropathy Family Medical History Significant Family History: No Pertinent Family Hx (Pt adopted ) Review of Systems ([facility]) Constitutional: no symptoms reported; No chills, No dizziness, No fever EENTM: other (Xerostomia ); No blurred vision Respiratory: no symptoms reported; No cough, No short of breath Cardiovascular: no symptoms reported; No chest pain, No edema, No palpitations Gastrointestinal: no symptoms reported; No abdominal pain, No constipation, No diarrhea, No nausea, No vomiting Genitourinary: no symptoms reported; No dysuria, No frequency Musculoskeletal: joint pain (Left knee), joint swelling Skin: no symptoms reported Psychiatric/Neurological: No Symptoms Reported; Denies Headache Physical Exam-([facility]) Physical Exam Vital Signs VS - Last 72 Hours, by Label 09/01/20 09/01/20 09/01/20 09/01/20 07:50 07:55 11:04 11:04 Temp 36.4 36.2 Pulse 69 Resp 18 16 B/P (MAP) 144/75 (98) 166/76 (106) Pulse Ox 96 96 92 O2 Delivery Room Air Room Air OxyMask OxyMask O2 Flow Rate 10 10 09/01/20 09/01/20 09/01/20 09/01/20 11:14 11:21 11:24 11:34 Resp 12 12 16 B/P (MAP) 133/79 (97) 132/72 (92) 128/79 (95) Pulse Ox 93 93 95 O2 Delivery OxyMask OxyMask OxyMask OxyMask O2 Flow Rate 10 10 10 10 09/01/20 09/01/20 09/01/20 09/01/20 11:44 11:45 11:54 12:05 Temp 36.1 34.9 Pulse 83 Resp 14 13 18 B/P (MAP) 120/66 (84) 122/64 (83) 124/63 (83) Pulse Ox 94 94 92 O2 Delivery OxyMask Nasal Cannula Nasal Cannula Nasal Cannula O2 Flow Rate 10 2 2 2.00 09/01/20 09/01/20 09/01/20 09/01/20 12:05 14:39 16:00 16:05 Temp 36.0 Pulse 87 Resp 20 18 B/P (MAP) 124/61 (82) Pulse Ox 98 O2 Delivery Nasal Cannula Room Air Nasal Cannula O2 Flow Rate 2 2.00 09/01/20 09/01/20 09/01/20 09/01/20 16:44 16:47 17:06 18:31 Temp 36.0 Resp 18 Pulse Ox 97 96 O2 Delivery Nasal Cannula Nasal Cannula O2 Flow Rate 2.00 2.00 2.00 09/01/20 09/01/20 09/01/20 09/01/20 19:56 20:00 20:34 21:13 Temp 36.2 Pulse 82 Resp 20 20 B/P (MAP) 120/62 (81) Pulse Ox 92 92 92 O2 Delivery Nasal Cannula Nasal Cannula Nasal Cannula O2 Flow Rate 2.00 2.00 2.00 Capillary Refill : Less Than 3 Seconds General Appearance: WD/WN, no apparent distress HEENT: No scleral icterus (R), No scleral icterus (L) Neck: non-tender, full range of motion, supple, normal inspection; No lymphadenopathy (R), No lymphadenopathy (L) Respiratory: chest non-tender, lungs clear, normal breath sounds, no respiratory distress, no accessory muscle use Cardiovascular: normal peripheral pulses, regular rate, rhythm, no edema, no murmur Peripheral Pulses: 2+ Dorsalis Pedis (R), 2+ Left Dors-Pedis (L), 2+ Radial Pulses (R), 2+ Radial Pulses (L) Gastrointestinal: normal bowel sounds, non tender, soft Back: no CVA tenderness, no vertebral tenderness Extremities: no pedal edema, other (compression stockings on bilateral LE) Neurologic/Psychiatric: alert, normal mood/affect, oriented x 3 Skin: normal color, warm/dry Lymphatic: no adenopathy Assessment/Plan Assessment/Plan Admission Dx S/P L total knee replacement (1) S/P total knee replacement Status: Acute Assessment & Plan: Continue orders placed by veda Villanueva for Qualifiers: Qualified Codes: Z96.652 - Presence of left artificial knee joint (2) Hyperlipemia Status: Chronic Assessment & Plan: - Will restart home meds Atorvastatin (3) Hypertension Status: Chronic Assessment & Plan: - Will restart home meds in the AM, normotensive blood pressures since surgery (4) Neuropathy Status: Chronic Assessment & Plan: Home medications include Amitriptyline HCl 100mg and Pregabalin 100 mg. (5) BPH (benign prostatic hyperplasia) Status: Chronic Qualifiers: Qualified Codes: N40.0 - Benign prostatic hyperplasia without lower urinary tract symptoms (6) DVT prophylaxis Status: Acute Assessment & Plan: Enoxaparin injections Copy Copies To 1: DEVIN WILLOUGHBY MD Supervisory-Addendum Brief Supervisory Addendum Verification and Attestation of Medical Student E/M Service A medical student performed and documented this service in my presence. I reviewed and verified all information documented by the medical student and made modifications to such information, when appropriate. I personally performed the physical exam and medical decision making. Devin Willoughby, Sep 01, 2020,22:25 Dr Willoughby's plan in italics [employer] MED STUDENT Sep 01, 2020 17:49 DEVIN WILLOUGHBY MD Sep 01, 2020 22:20
[2020-09-01] MEDS: SENNA W/DOCUSATE (SENOKOT S) TABLET PO SCH (20:44)
[2020-09-02 00:25] VITALS: BP 136/70
[2020-09-02] MEDS: NS IV 1000 ML 1,000 ML IV SCH ×2 (03:23→15:50)
[2020-09-02 04:01] VITALS: BP 147/90
[2020-09-02] MEDS: oxyCODONE/APAP 5/325MG (PERCOCET 5) TABLET PO PRN (05:56)
[2020-09-02 05:59] LABS: HEMOGLOBIN 12.2 g/dL (13.3-17.7)
[2020-09-02] MEDS: MULTIVIT W/MINERALS TAB (THERAGRAN M) PO SCH (06:11)
[2020-09-02 07:30] VITALS: BP 191/83
--- NOTE | 2020-09-02 08:01 | Progress Note ---
Standard Progress Note Progress Notes/Assess & Plan Date Seen by a Provider: Sep 02, 2020 Time Seen by a Provider: 08:00 Progress/Assessment & Plan post op check no complaints radiographs--hw well positioned without fracture LLE--2 plus dp pulse with brisk refill. sensation intact throughout. intact DF and PF of the toes and ankle s/p LTKA mobilize as able Final Diagnosis c/o of pain Vital Signs Date Time Temp Pulse Resp B/P (MAP) Pulse Ox O2 Delivery O2 Flow Rate FiO2 09/02/20 07:01 94 Nasal Cannula 3.00 09/02/20 04:01 37.4 109 20 147/90 (109) 95 Nasal Cannula 2.00 09/02/20 02:08 94 Nasal Cannula 2.00 09/02/20 00:25 37.0 88 20 136/70 (92) 96 Nasal Cannula 2.00 09/01/20 21:13 92 Nasal Cannula 2.00 09/01/20 20:34 20 09/01/20 20:00 92 Nasal Cannula 2.00 09/01/20 19:56 36.2 82 20 120/62 (81) 92 Nasal Cannula 2.00 09/01/20 18:31 96 Nasal Cannula 2.00 09/01/20 17:06 2.00 09/01/20 16:47 97 Nasal Cannula 2.00 09/01/20 16:44 36.0 18 09/01/20 16:05 18 09/01/20 16:00 36.0 87 20 124/61 (82) 98 Nasal Cannula 2.00 09/01/20 14:39 Room Air 09/01/20 12:05 Nasal Cannula 2 09/01/20 12:05 34.9 83 18 124/63 (83) 92 Nasal Cannula 2.00 09/01/20 11:54 36.1 13 122/64 (83) 94 Nasal Cannula 2 09/01/20 11:45 Nasal Cannula 2 09/01/20 11:44 14 120/66 (84) 94 OxyMask 10 09/01/20 11:34 16 128/79 (95) 95 OxyMask 10 09/01/20 11:24 12 132/72 (92) 93 OxyMask 10 09/01/20 11:21 OxyMask 10 09/01/20 11:14 12 133/79 (97) 93 OxyMask 10 09/01/20 11:04 OxyMask 10 09/01/20 11:04 36.2 16 166/76 (106) 92 OxyMask 10 I & O 09/02/20 07:00 Intake Total 3485 ml Output Total 700 ml Balance 2785 ml Laboratory Tests Test 09/02/20 04:38 Range/Units Hemoglobin 12.2 L 13.3-17.7 g/dL Hematocrit 37 L 40-54 % LLE--dressing intact. intact DF and PF of toes and ankle. sensation intact throughout s/p LTKA PT/OT MIRTHA SANDRA MD Sep 02, 2020 08:01
[2020-09-02] MEDS ORDERED: OXYC1TAB87 PO (08:02)
[2020-09-02] MEDS: ENOXAPARIN 30 MG/0.3 ML (LOVENOX) SYR SC SCH ×2 (09:09→21:05)
[2020-09-02] MEDS: ASPIRIN E.C. 81 MG (ECOTRIN) TAB PO SCH (09:09)
[2020-09-02] MEDS: SENNA W/DOCUSATE (SENOKOT S) TABLET PO SCH ×2 (09:10→21:05)
--- NOTE | 2020-09-02 11:15 | Physical Therapy Daily Note ---
PT Daily Note-Current Subjective Patient in bed pre tx, agrees to PT, has 5/10 pain in left knee, patient states he has much more pain and didn't sleep last night. Appearance Patient in bed post tx with nurse call, phone, tray, polar care on, CPM donned (60/-2 degrees) Mental Status Patient Orientation: Person, Place, Situation Attachments: IV Transfers SCALE: Activities may be completed with or without assistive devices. 8-Utytudtknw-hkixjpa completes the activity by him/herself with no assistance from a helper. 5-Set-up or Clean-up Assistance-helper sets up or cleans up; patient completes activity. [place] assists only prior to or following the activity. 4-Supervision or Touching Assistance-helper provides verbal cues and/or touching/steadying and/or contact guard assistance as patient completes activity. Assistance may be provided throughout the activity or intermittently. 3-Partial/Moderate Assistance-helper does LESS THAN HALF the effort. [place] lifts, holds or supports trunk or limbs, but provides less than half the effort. 2-Substantial/Maximal Assistance-helper does MORE THAN HALF the effort. [place] lifts or holds trunk or limbs and provides more than half the effort. 6-Uzkecvoel-xymnpv does ALL the effort. Patient does none of the effort to complete the activity. Or, the assistance of 2 or more helpers is required for the patient to complete the activity. If activity was not attempted, code reason: 7-Patient Refused. 9-Not Applicable-not attempted and the patient did not perform the activity before the current illness, exacerbation or injury. 10-Not Attempted due to Environmental Limitations-(lack of equipment, weather restraints, etc.). 88-Not Attempted due to Medical Conditions or Safety Concerns. Roll Left & Right (QC): 6 Sit to Lying (QC): 3 Lying to Sitting/Side of Bed(Q: 3 Sit to Stand (QC): 4 Chair/Lmz-tr-Ypqfz Xfer(QC): 4 Weight Bearing Left Lower Extremity: Left Weight Bearing/Tolerated Gait Training Distance: 20' Walk 10 feet (QC): 4 Gait Persons Needed: 1 Gait Assistive Device: FWW slow, antalgic, slumped posture, flexed left knee, poor heel strike and step through Exercises Supine Ex: Ankle pumps, Quad Set, Heel Slides, Short Arc Quads, Straight leg raise Supine Reps: 15 Treatments bed mobility and transfers, ambulation, TKA exercises Assessment Current Status: Poor Progress Poor ambulation. Patient's left knee ROM is extension +7 degrees, flexion 70 degrees PT Skilled Nursing Goals Internet Consultant Goals PT Internet Consultant Goals Time Frame: Sep 08, 2020 Roll Left & Right (QC): 6 Sit to Lying (QC): 6 Lying-Sitting on Side/Bed(QC): 6 Sit to Stand (QC): 6 Chair/Dpd-ey-Bvlmn Xfer(QC): 6 Toilet Transfer (QC): 6 Walk 10 feet (QC): 6 Walk 50ft with 2 Turns (QC): 6 Walk 150 ft (QC): 6 1 Step (curb) (QC): 6 4 Steps (QC): 6 PT Plan Problem List Problem List: Activity Tolerance, Functional Strength, Safety, Balance, Gait, Transfer, Bed Mobility, ROM Treatment/Plan Treatment Plan: Continue Plan of Care Treatment Plan: Bed Mobility, Education, Functional Activity Carlo, Functional Strength, Gait, Safety, Therapeutic Exercise, Transfers Treatment Duration: Sep 08, 2020 Frequency: 11 times per week Estimated Hrs Per Day: .25 hour per day Patient and/or Family Agrees t: Yes Safety Risks/Education Patient Education: Gait Training, Transfer Techniques, Correct Positioning, S afety Issues Teaching Recipient: Patient Teaching Methods: Demonstration, Discussion Response to Teaching: Reinforcement Needed Time/GCodes Time In: 1017 Time Out: 1038 Total Billed Treatment Time: 21 Total Billed Treatment 1 visit FA 21' WILIAN CRUZ PT Sep 02, 2020 11:15
--- NOTE | 2020-09-02 11:48 | Occupational Therapy Eval ---
OT Evaluation-General/PLF Medical Diagnosis Admission Date Sep 01, 2020 at 07:32 Medical Diagnosis: left TKA Onset Date: Sep 01, 2020 Therapy Diagnosis Therapy Diagnosis: decreased ADL status Height/Weight Height (Feet): 6 Height (Inches): 2.00 Weight (Pounds): 220 Weight (Ounces): 0.0 Referral Physician: Ilan Referral Reason: Evaluation/Treatment Medical History Pertinent Medical History: CVA, HTN Additional Medical History OA, hypercholesterolemia, sleep apnea Current History s/p L TKA 09/01/20 Social History Current Living Status: Spouse Entry Into Home: Stairs With Railing Steps Into Home: 6 ADL-Prior Level of Function SCALE: Activities may be completed with or without assistive devices. 0-Gktjwqieip-vbztuvt completes the activity by him/herself with no assistance from a helper. 5-Set-up or Clean-up Assistance-helper sets up or cleans up; patient completes activity. [place] assists only prior to or following the activity. 4-Supervision or Touching Assistance-helper provides verbal cues and/or touching/steadying and/or contact guard assistance as patient completes activity. Assistance may be provided throughout the activity or intermittently. 3-Partial/Moderate Assistance-helper does LESS THAN HALF the effort. [place] lifts, holds or supports trunk or limbs, but provides less than half the effort. 2-Substantial/Maximal Assistance-helper does MORE THAN HALF the effort. [place] lifts or holds trunk or limbs and provides more than half the effort. 5-Gyjiqamrn-suzsnh does ALL the effort. Patient does none of the effort to complete the activity. Or, the assistance of 2 or more helpers is required for the patient to complete the activity. If activity was not attempted, code reason: 7-Patient Refused. 9-Not Applicable-not attempted and the patient did not perform the activity before the current illness, exacerbation or injury. 10-Not Attempted due to Environmental Limitations-(lack of equipment, weather restraints, etc.). 88-Not Attempted due to Medical Conditions or Safety Concerns. ADL PLOF Comments Pt indicates he was IND with ADLs and functional mobility at [facility], no AD/AE. He admits that he was supposed to be using AD for functional mobility but didn't, resulting in some falls. He has a tub/shower, no SC as his tub is too narrow for a chair to fit. Self Care: Independent Functional Cognition: Independent DME/Equipment: Tub/Shower OT Current Status Subjective Pt laying in bed, states he is tired and trying to nap. Reluctantly agrees to OT evaluation/tx. Mental Status/Objective Patient Orientation: Person, Place, Time, Situation Attachments: IV, Oxygen, Other-See Comments (CPM) Current Upper Extremity ROM WFL, BUE shoulder flexion to approx 140 degrees Upper Extremity Coordination WFL Upper Extremity Sensation WFL Upper Extremity Strength grossly 3+/5 ADL-Treatment Oral Hygiene (QC): 7 Shower/Bathe Self (QC): 7 Upper Body Dressing (QC): 7 Lower Body Dressing (QC): 7 On/Off Footwear (QC): 7 Toileting Hygiene (QC): 7 Other Treatments Pt laying in bed, CPM on LLE. OT educated pt on purpose and benefit of OT, he verbalized understanding. Pt provided information about PLOF and home set up and participated in UE screen. Pt indicates he lives with his who will be able to assist him with ADLs as needed at discharge, he has no concerns with his ability to complete ADLS at this time. OT encouraged pt to participate in ADL tx, but pt refused all ADLs offered. Pt agreeable to UE exercise with moderate encouragement. Pt completed x15 reps each of the following BUE exercises in order to increase BUE strength and activity tolerance: shoulder flexion, elbow flexion/extension and finger flexion/extension. Pt declined further tx at this time, as he would like to rest. Post tx, pt laying in bed, call light in reach and all needs met. Education OT Patient Education: Correct positioning, Exercise program, Modified ADL techniques, Progress toward Goal/Update tx plan, Purpose of tx/functional activities, Rehab process Teaching Recipient: Patient Teaching Methods: Discussion Response to Teaching: Reinforcement Needed OT Rackman Goals Rackman Goals Time Frame: Sep 10, 2020 Eating (QC): 6 Oral Hygiene (QC): 6 Toileting Hygiene (QC): 4 Shower/Bathe Self (QC): 4 Upper Body Dressing (QC): 5 Lower Body Dressing (QC): 4 On/Off Footwear (QC): 4 Additional Goals: 1-Demonstrate ADL Tasks, 2-Verbalize Understanding, 3-ImproveStrength/Carlo 1=Demonstrate adherence to instructed precautions during ADL tasks. 2=Patient will verbalize/demonstrate understanding of assistive devices/modifications for ADL. 3=Patient will improve strength/tolerance for activity to enable patient to perform ADL's. OT Education/Plan Problem List/Assessment Assessment: Decreased Activ Tolerance, Decreased UE Strength, Impaired I ADL's, Impaired Self-Care Skills Pt would benefit from skilled OT services in order to increase independence with ADLs and functional mobility to maximize LOF for safe return home with spouse. Discharge Recommendations Plan/Recommendations: Continue POC Treatment Plan/Plan of Care Patient would benefit from OT for education, treatment and training to promote independence in ADL's, mobility, safety and/or upper extremity function for ADL's. Plan of Care: ADL Retraining, Functional Mobility, UE Funct Exercise/Act Treatment Duration: Sep 10, 2020 Frequency: 5 times per week Estimated Hrs Per Day: .25 hour per day Rehab Potential: Fair Time/GCodes Start Time: 10:49 Stop Time: 10:58 Total Time Billed (hr/min): 9 Billed Treatment Time 1, SYMONE URIAS OT Sep 02, 2020 11:48
[2020-09-02 12:00] VITALS: BP 154/78
--- NOTE | 2020-09-02 13:51 | Physical Therapy Daily Note ---
PT Daily Note-Current Subjective Patient in bed pre tx, agrees to PT, has 8/10 pain in left knee. Appearance Patient in bed post tx with nurse call, phone, tray, all needs met, polar care on. Mental Status Patient Orientation: Person, Place, Situation Attachments: Oxygen, Polar Pack, IV Transfers SCALE: Activities may be completed with or without assistive devices. 9-Xrhzfptswj-hdyzfia completes the activity by him/herself with no assistance from a helper. 5-Set-up or Clean-up Assistance-helper sets up or cleans up; patient completes activity. [place] assists only prior to or following the activity. 4-Supervision or Touching Assistance-helper provides verbal cues and/or touching/steadying and/or contact guard assistance as patient completes activity. Assistance may be provided throughout the activity or intermittently. 3-Partial/Moderate Assistance-helper does LESS THAN HALF the effort. [place] lifts, holds or supports trunk or limbs, but provides less than half the effort. 2-Substantial/Maximal Assistance-helper does MORE THAN HALF the effort. [place] lifts or holds trunk or limbs and provides more than half the effort. 7-Cyilonlsm-syidru does ALL the effort. Patient does none of the effort to complete the activity. Or, the assistance of 2 or more helpers is required for the patient to complete the activity. If activity was not attempted, code reason: 7-Patient Refused. 9-Not Applicable-not attempted and the patient did not perform the activity before the current illness, exacerbation or injury. 10-Not Attempted due to Environmental Limitations-(lack of equipment, weather restraints, etc.). 88-Not Attempted due to Medical Conditions or Safety Concerns. Roll Left & Right (QC): 6 Sit to Lying (QC): 3 Lying to Sitting/Side of Bed(Q: 3 Sit to Stand (QC): 4 Chair/Qbw-nl-Wvppg Xfer(QC): 4 Weight Bearing Left Lower Extremity: Left Weight Bearing/Tolerated Gait Training Distance: 15'x2 Walk 10 feet (QC): 4 Gait Persons Needed: 1 Gait Assistive Device: FWW Poor quality of ambulation. Patient keeps a flexed left knee, poor heel strike, poor step through. Patient does a poor job of keeping the walker in a good position in front of him in order to use his arms and maintain his balance. Exercises Supine Ex: Ankle pumps, Quad Set, Heel Slides, Short Arc Quads, Straight leg raise Supine Reps: 15 Treatments bed mobility and transfers, ambulation, patient ambulate to the toilet to urinate (standing) Assessment Current Status: Poor Progress Patient seemed to have more impulsivity and poor safety awareness. PT Group Home Goals Head Knitting Machine Fixer Goals PT Group Home Goals Time Frame: Sep 08, 2020 Roll Left & Right (QC): 6 Sit to Lying (QC): 6 Lying-Sitting on Side/Bed(QC): 6 Sit to Stand (QC): 6 Chair/Opz-hi-Fmikv Xfer(QC): 6 Toilet Transfer (QC): 6 Walk 10 feet (QC): 6 Walk 50ft with 2 Turns (QC): 6 Walk 150 ft (QC): 6 1 Step (curb) (QC): 6 4 Steps (QC): 6 PT Plan Problem List Problem List: Activity Tolerance, Functional Strength, Safety, Balance, Gait, Transfer, Bed Mobility, ROM Treatment/Plan Treatment Plan: Continue Plan of Care Treatment Plan: Bed Mobility, Education, Functional Activity Carlo, Functional Strength, Gait, Safety, Therapeutic Exercise, Transfers Treatment Duration: Sep 08, 2020 Frequency: 11 times per week Estimated Hrs Per Day: .25 hour per day Patient and/or Family Agrees t: Yes Safety Risks/Education Patient Education: Gait Training, Transfer Techniques, Correct Positioning, Safety Issues Teaching Recipient: Patient Teaching Methods: Demonstration, Discussion Response to Teaching: Reinforcement Needed Time/GCodes Time In: 1317 Time Out: 1334 Total Billed Treatment Time: 17 Total Billed Treatment 1 visit FA WILIAN HALL PT Sep 02, 2020 13:51
[2020-09-02 15:56] VITALS: BP 164/79
[2020-09-02 19:48] VITALS: BP 145/68
--- NOTE | 2020-09-03 00:37 | DISCHARGE SUMMARY ---
DATE OF SERVICE: DIAGNOSES: 1. Left knee primary osteoarthritis. 2. Cerebrovascular accident. 3. Hypertension. 4. Osteoarthritis. 5. Hypercholesterolemia. 6. Sleep apnea. PROCEDURE: Left total knee arthroplasty. SUMMARY: The patient is a 69-year-old gentleman who underwent a left total knee arthroplasty on the day of admission. Postoperatively, he progressed well. At the time of discharge, he had no calf tenderness. Negative Homans sign. His wound was clean and dry. He was tolerating diet well and tolerating pain with oral pain medication. CONDITION AT DISCHARGE: Good. DISCHARGE DIET: Regular. FOLLOWUP: Followup is in three weeks. Home physical therapy will be arranged. DISCHARGE MEDICATIONS: Home medications with Percocet as needed for pain. ACTIVITIES: Weightbearing as tolerated with a walker. Job ID: [id number] DocumentID: [id number] Dictated Date: 09/02/2020 18:42:45 Lawyer [employer] Estate Date: 09/03/2020 00:36:37 Dictated By: MIRTHA SANDRA MD
[2020-09-03 00:52] VITALS: BP 147/72
[2020-09-03] MEDS: NS IV 1000 ML 1,000 ML IV SCH (03:51)
[2020-09-03 04:00] VITALS: BP 143/70
[2020-09-03 05:23] LABS: HEMOGLOBIN 12.1 g/dL (13.3-17.7)
[2020-09-03] MEDS: MULTIVIT W/MINERALS TAB (THERAGRAN M) PO SCH (06:02)
--- NOTE | 2020-09-03 06:50 | Anesthesia-General Post-Op ---
General Patient Condition Mental Status/LOC: Same as Preop Cardiovascular: Satisfactory Nausea/Vomiting: Absent Respiratory: Satisfactory Pain: Controlled Complications: Absent Post Op Complications Complications None Follow Up Care/Instructions Patient Instructions None needed. Anesthesia/Patient Condition Patient Condition Patient is doing well, no complaints, stable vital signs, no apparent adverse anesthesia problems. No complications reported per nursing. D/C [place] [facility] [place]: Yes GERMANIA SALAS CRNA Sep 03, 2020 06:50
--- NOTE | 2020-09-03 07:03 | Progress Note ---
Standard Progress Note Progress Notes/Assess & Plan Date Seen by a Provider: Sep 03, 2020 Time Seen by a Provider: 07:02 Progress/Assessment & Plan post op check no complaints radiographs--hw well positioned without fracture LLE--2 plus dp pulse with brisk refill. sensation intact throughout. intact DF and PF of the toes and ankle s/p LTKA mobilize as able Final Diagnosis feeling better today Vital Signs Date Time Temp Pulse Resp B/P (MAP) Pulse Ox O2 Delivery O2 Flow Rate FiO2 09/03/20 04:00 37.0 97 21 143/70 (94) 94 Nasal Cannula 1.00 09/03/20 02:25 92 2.00 09/03/20 00:52 36.9 98 20 147/72 (97) 94 Nasal Cannula 1.00 09/02/20 20:00 93 Nasal Cannula 2.00 09/02/20 20:00 16 09/02/20 19:48 36.5 111 24 145/68 (93) 93 Nasal Cannula 2.00 09/02/20 18:12 91 Nasal Cannula 2.00 09/02/20 16:26 92 2.00 09/02/20 15:56 36.6 112 20 164/79 (107) 92 Nasal Cannula 2.00 09/02/20 12:00 37.5 79 16 154/78 (103) 94 Nasal Cannula 2.00 09/02/20 08:00 92 Nasal Cannula 2.00 09/02/20 08:00 18 09/02/20 07:30 37.4 108 20 191/83 (119) 95 Nasal Cannula 2.00 I & O 09/03/20 06:59 Intake Total 1310 ml Output Total 1675 ml Balance -365 ml Laboratory Tests Test 09/03/20 04:57 Range/Units Hemoglobin 12.1 L 13.3-17.7 g/dL Hematocrit 36 L 40-54 % LLE--incision clean and dry. No calf tenderness. Neg Partha's s/p LTKA DC after PT today MIRTHA SANDRA MD Sep 03, 2020 07:03
[2020-09-03] MEDS ORDERED: morphine INJ 4 MG/ML 1 ML (VIAL/SYRINGE) IVP PRN (07:15)
[2020-09-03] MEDS: oxyCODONE/APAP 5/325MG (PERCOCET 5) TABLET PO PRN (07:54)
[2020-09-03 08:00] VITALS: BP 158/74
[2020-09-03] MEDS: ENOXAPARIN 30 MG/0.3 ML (LOVENOX) SYR SC SCH (08:43)
[2020-09-03] MEDS: SENNA W/DOCUSATE (SENOKOT S) TABLET PO SCH (08:44)
[2020-09-03] MEDS: ASPIRIN E.C. 81 MG (ECOTRIN) TAB PO SCH (08:44)
--- NOTE | 2020-09-03 09:47 | Physical Therapy Daily Note ---
PT Daily Note-Current Subjective Patient agrees to PT. Pain Numeric Pain Scale: 8 Location: Left Location Body Site: Knee Pain Description: Acute Mental Status Patient Orientation: Normal For Age Transfers SCALE: Activities may be completed with or without assistive devices. 1-Vxhkbovbfa-vnlmayl completes the activity by him/herself with no assistance from a helper. 5-Set-up or Clean-up Assistance-helper sets up or cleans up; patient completes activity. [place] assists only prior to or following the activity. 4-Supervision or Touching Assistance-helper provides verbal cues and/or touching/steadying and/or contact guard assistance as patient completes activity . Assistance may be provided throughout the activity or intermittently. 3-Partial/Moderate Assistance-helper does LESS THAN HALF the effort. [place] lifts, holds or supports trunk or limbs, but provides less than half the effort. 2-Substantial/Maximal Assistance-helper does MORE THAN HALF the effort. [place] lifts or holds trunk or limbs and provides more than half the effort. 6-Seyrhmpuy-csaifu does ALL the effort. Patient does none of the effort to complete the activity. Or, the assistance of 2 or more helpers is required for the patient to complete the activity. If activity was not attempted, code reason: 7-Patient Refused. 9-Not Applicable-not attempted and the patient did not perform the activity before the current illness, exacerbation or injury. 10-Not Attempted due to Environmental Limitations-(lack of equipment, weather restraints, etc.). 88-Not Attempted due to Medical Conditions or Safety Concerns. Lying to Sitting/Side of Bed(Q: 6 Sit to Stand (QC): 6 Chair/Jah-qj-Nbfbi Xfer(QC): 6 Weight Bearing Left Lower Extremity: Left Weight Bearing/Tolerated Gait Training Does the Patient Walk?: Yes Distance: 250' x 2 Walk 10 feet (QC): 5 Walk 50 ft with 2 Turns(QC): 5 Walk 150 ft (QC): 5 Walking 10ft/uneven surface-QC: 5 Gait Assistive Device: FWW flexed bilateral knee posture with step to pattern/antalgic (skilled VC's for posture, gait sequence and weight bearing left LE to utilize strength) Stair Training Stair Training: Handrails/: 1 handrail, uses walker #of Steps: 2 1 Step (curb) (QC): 4 (SBA) Stairs: Pattern: Step to Exercises Supine Ex: Ankle pumps, Quad Set, Heel Slides, Straight leg raise Supine Reps: 12 (AAROM left LE) Seated Therapy Exercises: Ankle pumps, Long arc quads Seated Reps: 15 (AAROM) Assessment Patient improved on this date. Continues to lack 10 degrees extension left LE and allows 70 degrees flexion AAROM left knee. PT instructed patient to continue with HEP issued by physician at preop. Patient voices understanding. PT Die Tester Goals Senior Care Goals PT Die Tester Goals Time Frame: Sep 08, 2020 Roll Left & Right (QC): 6 Sit to Lying (QC): 6 Lying-Sitting on Side/Bed(QC): 6 Sit to Stand (QC): 6 Chair/Sin-jh-Lyhhm Xfer(QC): 6 Toilet Transfer (QC): 6 Walk 10 feet (QC): 6 Walk 50ft with 2 Turns (QC): 6 Walk 150 ft (QC): 6 1 Step (curb) (QC): 6 4 Steps (QC): 6 PT Plan Treatment/Plan Treatment Plan: Discontinue PT Treatment Plan: Bed Mobility, Education, Functional Activity Carlo, Functional Strength, Gait, Safety, Therapeutic Exercise, Transfers Treatment Duration: Sep 08, 2020 Frequency: 11 times per week Estimated Hrs Per Day: .25 hour per day Patient and/or Family Agrees t: Yes Time/GCodes Time In: 750 Time Out: 830 Total Billed Treatment Time: 40 Total Billed Treatment 1 visit GT 17 min EX 13 min FA 10 min DAVID NGUYỄN PT Sep 03, 2020 09:47
== END 2020-09-03 09:40 | disposition home health service (06) | DRG 470 ==
LOC: 4TH 07:32 → SURG 07:34 → 4TH 12:15
PROVIDERS: ADMIT Orthopaedic Surgery; ATTEND Orthopaedic Surgery
PROC: 0SRD0J9 Replacement of Left Knee Joint with Synthetic Substitute, Cemented, Open Approach (ICD-10-PCS; principal; 2020-09-01 09:20)
DX: M17.12 Unilateral primary osteoarthritis, left knee (principal); Z87.891 Personal history of nicotine dependence; E78.00 Pure hypercholesterolemia, unspecified; I10 Essential (primary) hypertension; Z86.73 Personal history of transient ischemic attack (TIA), and cerebral infarction without residual deficits; G62.9 Polyneuropathy, unspecified; N40.0 Benign prostatic hyperplasia without lower urinary tract symptoms; G47.30 Sleep apnea, unspecified
CPT/HCPCS: 36415; 73560; 85014; 85018; 86850; 86900; 86901; 94664; 94760

== ENCOUNTER 2021-01-21 10:21 | Emergency (ER) | payer MEDICARE, MEDICAID ==
[~2021-01-21] VITALS: Ht 72 cm; Wt 108.9 kg
[~2021-01-21 10:21] MED LIST changes: -ACETAMINOPHEN 325 MG TABLET PO PRN; -NS IV 1000 ML 1,000 ML IV SCH; -ONDANSETRON 4 MG/2 ML (SDV) Z0FRAN IVP PRN; +OXYC1TAB87 PO; -diphenhydrAMINE 50 MG/ML INJ (BENADRYL) IVP PRN; -morphine PCA 100 MG/100 ML BAG IV PRN
[2021-01-21 10:28] VITALS: BP 148/84
[2021-01-21 10:52] LABS: BASOPHILS % (AUTO) 0 % (0-10); EOSINOPHILS % (AUTO) 0 % (0-10); HEMATOCRIT 44 % (40-54); HEMOGLOBIN 15.3 g/dL (13.3-17.7); LYMPHOCYTES # (AUTO) 0.7 10^3/uL (1.0-4.0); LYMPHOCYTES % (AUTO) 6 % (12-44); MEAN CORPUSCULAR HEMOGLOBIN 29 pg (25-34); MEAN CORPUSCULAR HGB CONC 35 g/dL (32-36); MEAN CORPUSCULAR VOLUME 84 fL (80-99); MEAN PLATELET VOLUME 9.8 fL (9.0-12.2); MONOCYTES # (AUTO) 0.8 10^3/uL (0.0-1.0); MONOCYTES % (AUTO) 7 % (0-12); NEUTROPHILS # (AUTO) 10.4 10^3/uL (1.8-7.8); NEUTROPHILS % (AUTO) 87 % (42-75); PLATELET COUNT 223 10^3/uL (130-400)
[2021-01-21 11:10] LABS: ALBUMIN 4.1 GM/DL (3.2-4.5); CHLORIDE 109 MMOL/L (98-107); POTASSIUM 4.6 MMOL/L (3.6-5.0); SODIUM 140 MMOL/L (135-145)
[2021-01-21 11:11] LABS: CALCIUM 8.6 MG/DL (8.5-10.1)
[2021-01-21 11:12] LABS: GLUCOSE 113 MG/DL (70-105)
[2021-01-21 11:13] LABS: CARBON DIOXIDE 20 MMOL/L (21-32)
[2021-01-21 11:14] LABS: BILIRUBIN,TOTAL 0.4 MG/DL (0.1-1.0)
[2021-01-21 11:15] LABS: ALKALINE PHOSPHATASE 107 U/L (40-136)
[2021-01-21 11:16] LABS: CREATININE SERUM 0.96 MG/DL (0.60-1.30); GFR ESTIMATED 78
[2021-01-21 11:17] LABS: BUN/CREATININE RATIO 21
[2021-01-21 11:18] LABS: MAGNESIUM 1.7 MG/DL (1.6-2.4)
[2021-01-21 11:19] LABS: ALANINE AMINOTRANSFERASE 27 U/L (0-55); CREATINE KINASE 143 U/L (30-200)
[2021-01-21 11:24] LABS: BILIRUBIN,URINE NEGATIVE (NEGATIVE); CLARITY,URINE CLEAR; COLOR,URINE YELLOW; GLUCOSE, URINE (UA) NEGATIVE (NEGATIVE); KETONES,URINE NEGATIVE (NEGATIVE); LEUKOCYTE ESTERASE ,URINE NEGATIVE (NEGATIVE); NITRITE,URINE NEGATIVE (NEGATIVE); PROTEIN,URINE NEGATIVE (NEGATIVE)
[2021-01-21 11:37] LABS: BACTERIA,URINE NEGATIVE /HPF; SQUAMOUS EPITHELIAL CELL,UR RARE /HPF; WBC,URINE RARE /HPF
[2021-01-21 11:39] LABS: TSH (THYROID ANALYZER) 0.69 UIU/ML (0.35-4.94)
[2021-01-21 11:43] LABS: BAND NEUTROPHILS 6 %; BASOPHILS % (MANUAL) 0 %; EOSINOPHILS % (MANUAL) 0 %; LYMPHOCYTES % (MANUAL) 2 %; MONOCYTES % (MANUAL) 5 %; NEUTROPHILS % (MANUAL) 82 %; RBC MORPH NORMAL
[2021-01-21 11:45] LABS: AMPHETAMINE SCREEN, URINE NEGATIVE (NEGATIVE); BARBITURATE SCREEN URINE NEGATIVE (NEGATIVE); BENZODIAZEPINES SCREEN URINE NEGATIVE (NEGATIVE); CANNABINOID SCREEN, URINE NEGATIVE (NEGATIVE); COCAINE SCREEN URINE NEGATIVE (NEGATIVE); METHADONE STAT NEGATIVE (NEGATIVE); METHAMPHETAMINE SCREEN URINE S NEGATIVE (NEGATIVE); OPIATE SCREEN URINE POSITIVE (NEGATIVE); OXYCODONE STAT NEGATIVE (NEGATIVE); PROPOXYPHENE STAT NEGATIVE (NEGATIVE); TRICYCLIC ANTIDEPRESSANTS SCRE POSITIVE (NEGATIVE)
[2021-01-21] MEDS ORDERED: NS IV 1000 ML 1,000 ML IV SCH (12:00)
[2021-01-21] MEDS ORDERED: diphenhydrAMINE 50 MG/ML INJ (BENADRYL) IVP ONE (12:15)
[2021-01-21] MEDS ORDERED: HOLD METFORMIN - RECEIVED CONTRAST 20 ML VIAL IV SCH ×2 (13:30→15:30)
[2021-01-21] MEDS ORDERED: NS 100 ML (IVPB) BAG IV ONE ×2 (13:30→15:30)
[2021-01-21] MEDS ORDERED: IOHEXOL 350 MG/ML 100 ML (OMNIPAQUE 350) VIAL IV ONE ×2 (13:30→15:30)
[2021-01-21] MEDS: CATHETER FLUSH 10 ML SYR IV PRN ×2 (13:50→15:50)
--- NOTE | 2021-01-21 14:18 | Diagnostic Imaging Report ---
PROCEDURE: CT angiography of the head and CT angiography of the neck with and without contrast. TECHNIQUE: Contiguous noncontrast images were obtained from the skull base through the vertex. After intravenous contrast administration, helical CT angiography of the neck was performed. Source data was reformatted into 3D MIP projections. Delayed post contrast acquisition was also obtained. Auto Exposure Controls were utilized during the CT exam to meet ALARA standards for radiation dose reduction. INDICATION: Dizziness and headaches. Prior stroke. Comparison made to the prior CT of the head performed on November 19, 2015. FINDINGS: The noncontrast CT of the head demonstrates no findings of an acute intracranial hemorrhage. There is no intracranial mass effect or shift. There is no hydrocephalus. There is a small focus of low attenuation of the deep white matter of the right frontal lobe which is unchanged from previous examination and suggests a prior small lacunar type infarct. There is no new loss of zacarias-white differentiation. There are no findings of vasogenic edema. There is no mass effect or hydrocephalus. The basilar cisterns are patent. The visualized portion of the aortic arch demonstrates no significant stenosis. The vertebral artery origins are patent. The common carotid arteries demonstrate no significant stenosis. There is atherosclerotic disease at the carotid bifurcations but this results in less than 50% stenosis of the proximal internal carotid arteries by NASCET criteria. Cervical segment of the internal carotid arteries demonstrate no significant stenosis or dissection. The left vertebral artery is dominant. The right is hypoplastic. The cervical segments of the vertebral arteries demonstrate no caliber change to suggest stenosis or dissection. Intracranially there is appropriate flow within the intracranial segments of the internal carotid arteries. The carotid terminus is unremarkable. There is normal flow within the M1 segment of both the middle cerebral arteries. There are no findings of an M2 branch occlusion. The anterior cerebral arteries appear patent. Within the posterior circulation, the patient's dominant left vertebral artery supplies a patent basilar artery. The basilar is somewhat small as there are prominent bilateral posterior communicating arteries. There are no findings of the BALANCE WHEEL FACER branch occlusion. The superior cerebral arteries appear patent. The posterior inferior cerebral arteries are patent. The patient's small right-sided vertebral artery appears to terminate in PICA. There are no findings of intracranial aneurysm formation. The dural venous sinuses are patent. Postcontrast CT of the head demonstrates no evidence of pathologic intracranial enhancement. Soft tissue of the neck demonstrates no acute process. The lung apices demonstrate advanced features of centrilobular emphysema. There are advanced background degenerative features within the cervical spine without evidence of an acute or suspicious osseous abnormality. IMPRESSION: 1. Noncontrast CT of the head demonstrates age-related global volume loss with an unchanged remote lacunar infarct in the white matter of the right frontal lobe. There is no new territorial loss of zacarias-white differentiation, hemorrhage or mass effect. No acute intracranial abnormality demonstrated. 2. CT angiography demonstrates no evidence of an intracranial large vessel occlusion or high-grade stenosis 3. No findings of aneurysm formation. 4. The dural venous sinuses are patent. 5. No pathologic intracranial enhancement. 6. No findings of dissection within the neck. There is less than 50% stenosis at the carotid bifurcations. 7. Advanced cervical degenerative disc disease and facet arthropathy. 8. Pulmonary emphysema. Dictated by: Dictated on workstation # [id number]
--- NOTE | 2021-01-21 14:55 | ED General ---
General Chief Complaint: Dizziness/Syncope Stated Complaint: DIZZINESS,SHAKES,MUSCLES TIGHTEN UP Nursing Triage Note: Pt arrives via POV from home with c/o dizziness/shakiness; onset this AM. Pt reports going to bed normal last night; states this AM he woke up et felt shakey, states when he stood up he felt dizzy. Pt states "I want to make sure I didn't have a seizure." Pt denies hx of seizures. Pt does report hx of ischemic stroke. Pt also reports left knee replacement in July of this year et is using a walker to ambulate. Source of Information: Patient, Family Exam Limitations: No Limitations History of Present Illness Date Seen by Provider: Jan 21, 2021 Initial Comments 3 pots of coffee per Allergies and Home Medications Allergies Coded Allergies: No Known Drug Allergies (Unverified , 05/04/19) Patient Home Medication List Amitriptyline HCl (Amitriptyline HCl) 100 Mg Tablet, 100 MG PO HS, (Reported) Entered as Reported by: MOI MITCHELL on 07/23/19 1118 Aspirin (Aspirin) Unknown Strength Tab.chew, Unknown Dose PO DAILY, (Reported) Entered as Reported by: MANSI CHILDS on 09/01/20 0825 Atorvastatin Calcium (Atorvastatin Calcium) 40 Mg Tablet, 40 MG PO HS, (Reported ) Entered as Reported by: MOI MITCHELL on 07/23/19 1118 Azithromycin (Azithromycin) 250 Mg Tablet, 250 MG PO UD Prescribed by: RICARDO SILVA on 01/21/21 1642 Hydrocodone Bit/Acetaminophen (HYDROcodone/APAP 10/325 TABLET) 1 Each Tablet, 1 EACH PO Q6H PRN for PAIN-MODERATE (5-7), (Reported) Entered as Reported by: CARRI SANTIZO on 08/09/17 1553 Lisinopril (Lisinopril) 10 Mg Tablet, 10 MG PO DAILY, (Reported) Entered as Reported by: MOI MITCHELL on 07/23/19 1118 Oxycodone HCl/Acetaminophen (Percocet 5-325 mg Tablet) 1 Each Tablet, 1 TAB PO Q4H Prescribed by: MIRTHA SANDRA on 09/02/20 0802 Pregabalin (Lyrica) 100 Mg Capsule, 100 MG PO DAILY, (Reported) Entered as Reported by: MOI MITCHELL on 07/23/19 1118 Past Bdjvcnq-Maqyry-Broyam Hx Patient Social History Tobacco Use?: No Use of E-Cig and/or Vaping dev: No Substance use?: No Alcohol Use?: No Pt feels they are or have been: No Immunizations Up To Date PED Vaccines UTD: No Influenza Vaccine Up-to-Date: Yes; Up-to-Date COVID19 Vaccine [employer] Book[employer] Representative: Vicino Seasonal Allergies Seasonal Allergies: Yes Past Medical History Surgeries: Yes (hydrocelectomy) Appendectomy Respiratory: No Cardiac: Yes (murmur as child) High Cholesterol, Hypertension Neurological: Yes (X3) Neuropathy, Stroke Reproductive Disorders: Yes (HYDROCELECTOMY) Sexually Transmitted Disease: No HIV/AIDS: No Genitourinary: No Gastrointestinal: Yes Chronic Constipation Musculoskeletal: Yes Arthritis, Chronic Back Pain, Fractures Endocrine: No HEENT: No Loss of Vision: Denies Hearing Impairment: Denies Cancer: No Psychosocial: No Integumentary: No Blood Disorders: No Adverse Reaction/Blood Tranf: No (N/A) Family Medical History No Pertinent Family Hx Physical Exam Vital Signs Vital Signs - First Documented 01/21/21 10:28 Temp 36.7 Pulse 112 Resp 22 B/P (MAP) 148/84 (105) Pulse Ox 93 O2 Delivery Room Air Capillary Refill : Less Than 3 Seconds Height, Weight, BMI Height: 6'2.00" Weight: 220lbs. 0.0oz. 99.298147pe; 210.00 BMI Method:Stated Progress/Results/Core Measures Suspected Sepsis SIRS Temperature: Pulse: 112 Respiratory Rate: 22 Laboratory Tests 01/21/21 10:40: White Blood Count 12.0H Blood Pressure 148 /84 Mean: 105 Laboratory Tests 01/21/21 10:40: Creatinine 0.96, Platelet Count 223, Total Bilirubin 0.4 Results/Orders Lab Results Laboratory Tests Test 01/21/21 10:40 01/21/21 11:15 01/21/21 11:20 01/21/21 13:30 Range/Units White Blood Count 12.0 H 4.3-11.0 10^3/uL Red Blood Count 5.28 4.30-5.52 10^6/uL Hemoglobin 15.3 13.3-17.7 g/dL Hematocrit 44 40-54 % Mean Corpuscular Volume 84 80-99 fL Mean Corpuscular Hemoglobin 29 25-34 pg Mean Corpuscular Hemoglobin Concent 35 32-36 g/dL Red Cell Distribution Width 13.0 10.0-14.5 % Platelet Count 223 130-400 10^3/uL Mean Platelet Volume 9.8 9.0-12.2 fL Immature Granulocyte % (Auto) 0 % Neutrophils (%) (Auto) 87 H 42-75 % Lymphocytes (%) (Auto) 6 L 12-44 % Monocytes (%) (Auto) 7 0-12 % Eosinophils (%) (Auto) 0 0-10 % Basophils (%) (Auto) 0 0-10 % Neutrophils # (Auto) 10.4 H 1.8-7.8 10^3/uL Lymphocytes # (Auto) 0.7 L 1.0-4.0 10^3/uL Monocytes # (Auto) 0.8 0.0-1.0 10^3/uL Eosinophils # (Auto) 0.0 0.0-0.3 10^3/uL Basophils # (Auto) 0.0 0.0-0.1 10^3/uL Immature Granulocyte # (Auto) 0.1 0.0-0.1 10^3/uL Neutrophils % (Manual) 82 % Lymphocytes % (Manual) 2 % Monocytes % (Manual) 5 % Eosinophils % (Manual) 0 % Basophils % (Manual) 0 % Band Neutrophils 6 % Blood Morphology Comment NORMAL Sodium Level 140 135-145 MMOL/L Potassium Level 4.6 3.6-5.0 MMOL/L Chloride Level 109 H 98-107 MMOL/L Carbon Dioxide Level 20 L 21-32 MMOL/L Anion Gap 11 5-14 MMOL/L Blood Urea Nitrogen 20 H 7-18 MG/DL Creatinine 0.96 0.60-1.30 MG/DL Estimat Glomerular Filtration Rate 78 BUN/Creatinine Ratio 21 Glucose Level 113 H 70-105 MG/DL Calcium Level 8.6 8.5-10.1 MG/DL Corrected Calcium 8.5 8.5-10.1 MG/DL Magnesium Level 1.7 1.6-2.4 MG/DL Total Bilirubin 0.4 0.1-1.0 MG/DL Aspartate Amino Transf (AST/SGOT) 21 5-34 U/L Alanine Aminotransferase (ALT/SGPT) 27 0-55 U/L Alkaline Phosphatase 107 40-136 U/L Total Creatine Kinase 143 30-200 U/L Troponin I < 0.028 < 0.028 <0.028 NG/ML C-Reactive Protein High Sensitivity 0.28 0.00-0.50 MG/DL Total Protein 7.0 6.4-8.2 GM/DL Albumin 4.1 3.2-4.5 GM/DL TSH Hart Testing 0.69 0.35-4.94 UIU/ML Serum Alcohol < 10 <10 MG/DL Urine Color YELLOW Urine Clarity CLEAR Urine pH 6.0 5-9 Urine Specific [place] >=1.030 1.016-1.022 Urine Protein NEGATIVE NEGATIVE Urine Glucose (UA) NEGATIVE NEGATIVE Urine Ketones NEGATIVE NEGATIVE Urine Nitrite NEGATIVE NEGATIVE Urine Bilirubin NEGATIVE NEGATIVE Urine Urobilinogen 0.2 < = 1.0 MG/DL Urine Leukocyte Esterase NEGATIVE NEGATIVE Urine RBC (Auto) NEGATIVE NEGATIVE Urine RBC NONE /HPF Urine WBC RARE /HPF Urine Squamous Epithelial Cells RARE /HPF Urine Crystals NONE /LPF Urine Bacteria NEGATIVE /HPF Urine Casts NONE /LPF Urine Mucus NEGATIVE /LPF Urine Culture Indicated NO Urine Opiates Screen POSITIVE H NEGATIVE Urine Oxycodone Screen NEGATIVE NEGATIVE Urine Methadone Screen NEGATIVE NEGATIVE Urine Propoxyphene Screen NEGATIVE NEGATIVE Urine Barbiturates Screen NEGATIVE NEGATIVE Ur Tricyclic Antidepressants Screen POSITIVE H NEGATIVE Urine Phencyclidine Screen NEGATIVE NEGATIVE Urine Amphetamines Screen NEGATIVE NEGATIVE Urine Methamphetamines Screen NEGATIVE NEGATIVE Urine Benzodiazepines Screen NEGATIVE NEGATIVE Urine Cocaine Screen NEGATIVE NEGATIVE Urine Cannabinoids Screen NEGATIVE NEGATIVE Influenza Type A (RT-PCR) Not Detected Not Detecte Influenza Type B (RT-PCR) Not Detected Not Detecte SARS-CoV-2 RNA (RT-PCR) Not Detected Not Detecte D-Dimer 0.62 H 0.00-0.49 UG/ML My Orders Orders - RICARDO AGUILA MD Alcohol (01/21/21 10:44) Cbc With Automated Diff (01/21/21 10:44) Comprehensive Metabolic Panel (01/21/21 10:44) Drug Screen Stat (Urine) (01/21/21 10:44) Magnesium (01/21/21 10:44) Thyroid Analyzer (01/21/21 10:44) Ua Culture If Indicated (01/21/21 10:44) Hs C Reactive Protein (01/21/21 10:47) Ekg Tracing (01/21/21 10:47) Monitor-Rhythm Ecg Trace Only (01/21/21 10:47) Creatine Kinase (01/21/21 10:49) Manual Differential (01/21/21 10:40) Influenza A And B By Pcr (01/21/21 11:19) Covid 19 Inhouse Test (01/21/21 11:19) Ns Iv 1000 Ml (Sodium Chloride 0.9%) (01/21/21 12:00) Diphenhydramine Injection (Benadryl Inje (01/21/21 12:15) Ekg Tracing (01/21/21 13:11) Ct Angio Head/Neck (01/21/21 13:18) Iohexol Injection (Omnipaque 350 Mg/Ml 1 (01/21/21 13:30) Received Contrast (Hold Metformin- Contr (01/21/21 13:30) Ns (Ivpb) (Sodium Chloride 0.9% Ivpb Bag (01/21/21 13:30) Sodium Chloride Flush (Catheter Flush Sy (01/21/21 13:30) Troponin I (01/21/21 13:24) Troponin I (01/21/21 13:30) Ekg Tracing (01/21/21 13:29) Fibrin Degradation Products (01/21/21 13:39) Apixaban Tablet (Eliquis Tablet) (01/21/21 15:25) Ct Angio Chest W (01/21/21 15:28) Iohexol Injection (Omnipaque 350 Mg/Ml 1 (01/21/21 15:30) Received Contrast (Hold Metformin- Contr (01/21/21 15:30) Sodium Chloride Flush (Catheter Flush Sy (01/21/21 15:30) Ns (Ivpb) (Sodium Chloride 0.9% Ivpb Bag (01/21/21 15:30) Medications Given in ED Current Medications Medications Dose Ordered Sig/Chris Route Start Time Stop Time Status Last Admin Dose Admin Diphenhydramine HCl 25 mg ONCE ONCE IVP 01/21/21 12:15 01/21/21 12:16 DC 01/21/21 12:16 25 MG Iohexol 70 ml ONCE ONCE IV 01/21/21 15:30 01/21/21 15:32 DC 01/21/21 15:50 70 ML Iohexol 75 ml ONCE ONCE IV 01/21/21 13:30 01/21/21 13:44 DC 01/21/21 13:50 75 ML Sodium Chloride 10 ml NEEDED PRN IV 01/21/21 13:30 01/21/21 17:00 DC 01/21/21 15:50 10 ML Sodium Chloride 100 ml ONCE ONCE IV 01/21/21 13:30 01/21/21 13:44 DC 01/21/21 13:50 80 ML Sodium Chloride 100 ml ONCE ONCE IV 01/21/21 15:30 01/21/21 15:32 DC 01/21/21 15:50 80 ML Vital Signs/I&O 01/21/21 10:28 Temp 36.7 Pulse 112 Resp 22 B/P (MAP) 148/84 (105) Pulse Ox 93 O2 Delivery Room Air Capillary Refill : Less Than 3 Seconds Blood Pressure Mean: 105 ECG EKG #1: EKG Time: 10:56 Rate: 113 Rhythm: S.Tach Comment Sinus tachycardia with no ST elevation or depression. Appearance of significant right bundle branch block but artifact present. EKG #2: EKG Time: 13:20 Rate: 103 Rhythm: S.Tach Comment Sinus tachycardia with no ST elevation or depression. Right bundle branch block. No axis deviation. EKG #3: EKG Time: 13:52 Rate: 101 Rhythm: S.Tach Comment This is a right-sided EKG. Patient has sinus tachycardia with no ST elevation or depression. Right bundle branch block. No axis deviation. Diagnostic Imaging Diagonstic Imaging: CT Plain Films/CT/US/NM/MRI: other (Angiogram head and neck) Comments CT angiogram head and neck viewed by me and report reviewed. See report below: NAME: [facility] REC#: [id number] PT STATUS: REG ER : 1950 PHYSICIAN: RICARDO AGUILA MD ADMIT DATE: 01/21/21/ER Signed Date of Exam:01/21/21 CT ANGIO HEAD/NECK PROCEDURE: CT angiography of the head and CT angiography of the neck with and without contrast. TECHNIQUE: Contiguous noncontrast images were obtained from the skull base through the vertex. After intravenous contrast administration, helical CT angiography of the neck was performed. Source data was reformatted into 3D MIP projections. Delayed post contrast acquisition was also obtained. Auto Exposure Controls were utilized during the CT exam to meet ALARA standards for radiation dose reduction. INDICATION: Dizziness and headaches. Prior stroke. Comparison made to the prior CT of the head performed on November 19, 2015. FINDINGS: The noncontrast CT of the head demonstrates no findings of an acute intracranial hemorrhage. There is no intracranial mass effect or shift. There is no hydrocephalus. There is a small focus of low attenuation of the deep white matter of the right frontal lobe which is unchanged from previous examination and suggests a prior small lacunar type infarct. There is no new loss of zacarias-white differentiation. There are no findings of vasogenic edema. There is no mass effect or hydrocephalus. The basilar cisterns are patent. The visualized portion of the aortic arch demonstrates no significant stenosis. The vertebral artery origins are patent. The common carotid arteries demonstrate no significant stenosis. There is atherosclerotic disease at the carotid bifurcations but this results in less than 50% stenosis of the proximal internal carotid arteries by NASCET criteria. Cervical segment of the internal carotid arteries demonstrate no significant stenosis or dissection. The left vertebral artery is dominant. The right is hypoplastic. The cervical segments of the vertebral arteries demonstrate no caliber change to suggest stenosis or dissection. Intracranially there is appropriate flow within the intracranial segments of the internal carotid arteries. The carotid terminus is unremarkable. There is normal flow within the M1 segment of both the middle cerebral arteries. There are no findings of an M2 branch occlusion. The anterior cerebral arteries appear patent. Within the posterior circulation, the patient's dominant left vertebral artery supplies a patent basilar artery. The basilar is somewhat small as there are prominent bilateral posterior communicating arteries. There are no findings of the RECEP branch occlusion. The superior cerebral arteries appear patent. The posterior inferior cerebral arteries are patent. The patient's small right-sided vertebral artery appears to terminate in PICA. There are no findings of intracranial aneurysm formation. The dural venous sinuses are patent. Postcontrast CT of the head demonstrates no evidence of pathologic intracranial enhancement. Soft tissue of the neck demonstrates no acute process. The lung apices demonstrate advanced features of centrilobular emphysema. There are advanced background degenerative features within the cervical spine without evidence of an acute or suspicious osseous abnormality. IMPRESSION: 1. Noncontrast CT of the head demonstrates age-related global volume loss with an unchanged remote lacunar infarct in the white matter of the right frontal lobe. There is no new territorial loss of zacarias-white differentiation, hemorrhage or mass effect. No acute intracranial abnormality demonstrated. 2. CT angiography demonstrates no evidence of an intracranial large vessel occlusion or high-grade stenosis 3. No findings of aneurysm formation. 4. The dural venous sinuses are patent. 5. No pathologic intracranial enhancement. 6. No findings of dissection within the neck. There is less than 50% stenosis at the carotid bifurcations. 7. Advanced cervical degenerative disc disease and facet arthropathy. 8. Pulmonary emphysema. Dictated by: Dictated on workstation # [id number] Dict: 01/21/21 1355 Trans: 01/21/21 1448 CV [id number] Interpreted by: AMY HERNANDEZ MD Electronically signed by: AMY HERNANDEZ MD 01/21/21 1448 Diagonstic Imaging: CT Plain Films/CT/US/NM/MRI: chest Comments CT angiogram chest viewed by me and report reviewed. See report below: NAME: [facility] REC#: [id number] PT STATUS: REG ER : 1950 PHYSICIAN: RICARDO AGUILA MD ADMIT DATE: 01/21/21/ER Signed Date of Exam:01/21/21 CT ANGIO CHEST W Clinical indication: Positive d-dimer, dizziness and shakes. Evaluate for pulmonary embolus. Exam: CT angiogram of the chest performed with 70 cc Omnipaque 350 IV contrast. Coronal and oblique MIP images of the vasculature were created to better evaluate anatomy. Auto Exposure Controls were utilized during the CT exam to meet ALARA standards for radiation dose reduction. Comparison: Screening CT scan of the chest without contrast dated 01/09/2020. Findings: Emphysematous lung disease is again seen. There is interval development of a small to moderate amount of consolidation and interseptal thickening involving the posterior aspect of the right upper lobe and throughout the medial posterior aspects of both lower lobes. There is interseptal thickening anteriorly involving both lungs which may be related to scarring. There is no pleural effusion or pneumothorax. There is prominence of the bilateral perihilar and mediastinal lymph nodes. Marker lymph node in the right of midline low tracheal region is seen which measures roughly 2.0 cm x 0.6 cm There is no axillary lymphadenopathy. Lymph nodes are not significantly changed in size. No thoracic aortic aneurysm or dissection. There is no evidence of pulmonary embolism. Limited visualization of the upper abdominal structures are unremarkable. There are hypertrophic spurs involving the thoracic spine. The extra thoracic soft tissue structures are unremarkable. Impression: 1: There is no evidence of pulmonary embolism. There is no thoracic aortic aneurysm or dissection. 2: There is interval development of a small to moderate amount of patchy lung consolidation and septal thickening involving the posterior aspect of the right upper lobe and posterior aspects of both lower lobes which is superimposed upon emphysematous lung disease. These findings are concerning for infectious or inflammatory process. 3: There is stable prominent mediastinal and hilar lymphadenopathy. Dictated by: Dictated on workstation # [id number] Dict: 01/21/21 1554 Trans: 01/21/21 1635 PJE [id number] Interpreted by: NALDO CARTAGENA MD Electronically signed by: NALDO CARTAGENA MD 01/21/21 1635 Departure Impression Primary Impression: Lightheadedness Additional Impressions: Fasciculations Abnormal EKG Acute headache Qualified Codes: R51.9 - Headache, unspecified History of CVA (cerebrovascular accident) Pulmonary infiltrate Disposition: 01 HOME, SELF-CARE Condition: Improved Departure-Patient Inst. Decision time for Depature: 15:18 Referrals: DEVIN VILLANUEVA MD (PCP/Family) Primary Care Physician DEMARCUS SHEA MD Patient Instructions: Amyotrophic Lateral Sclerosis (ALS), Community-Acquired Pneumonia in Adults, Dizziness, Nonvertigo, (DC) Add. Discharge Instructions: Follow-up with Dr. Villanueva as soon as possible. You should also follow-up with a archery equipment hay sorter as soon as possible. Dr. Shea's contact information is listed below. You should have a repeat echocardiogram performed as well as consultation with a archery equipment hay sorter. Discuss further evaluation for your symptoms with Dr. Villanueva. This may include other studies such as MRI of the brain or EMG testing. Referral to a specialist such as a neurologist may also be appropriate. Additionally, you appear to have some inflammation in both lungs that may be related to pneumonia. Please complete your antibiotic as prescribed. Then fo llow-up with Dr. Villanueva in a few weeks to have a chest x-ray performed to ensure it clears. Call with questions or concerns. Return to the ER if you have worsening symptoms. All discharge instructions reviewed with patient and/or family. Voiced understan zofia. Scripts Azithromycin (Azithromycin) 250 Mg Tablet 250 MG PO UD, #6 TAB TAKE 2 TABLETS ON DAY ONE THEN TAKE 1 TABLET DAILY FOR FOUR MORE DAYS Prov: RICARDO AGUILA MD 01/21/21 Copy Copies To 1: DEVIN VILLANUEVA MD Copies To 2: DEMARCUS SHEA MD, JOSHUA T MD Jan 21, 2021 14:55
[2021-01-21] MEDS ORDERED: APIXABAN 5 MG (ELIQUIS) TABLET PO STA (15:25)
[2021-01-21] MEDS ORDERED: CATHETER FLUSH 10 ML SYR IV PRN (15:30)
--- NOTE | 2021-01-21 16:25 | Diagnostic Imaging Report ---
Clinical indication: Positive d-dimer, dizziness and shakes. Evaluate for pulmonary embolus. Exam: CT angiogram of the chest performed with 70 cc Omnipaque 350 IV contrast. Coronal and oblique MIP images of the vasculature were created to better evaluate anatomy. Auto Exposure Controls were utilized during the CT exam to meet ALARA standards for radiation dose reduction. Comparison: Screening CT scan of the chest without contrast dated 01/09/2020. Findings: Emphysematous lung disease is again seen. There is interval development of a small to moderate amount of consolidation and interseptal thickening involving the posterior aspect of the right upper lobe and throughout the medial posterior aspects of both lower lobes. There is interseptal thickening anteriorly involving both lungs which may be related to scarring. There is no pleural effusion or pneumothorax. There is prominence of the bilateral perihilar and mediastinal lymph nodes. Marker lymph node in the right of midline low tracheal region is seen which measures roughly 2.0 cm x 0.6 cm There is no axillary lymphadenopathy. Lymph nodes are not significantly changed in size. No thoracic aortic aneurysm or dissection. There is no evidence of pulmonary embolism. Limited visualization of the upper abdominal structures are unremarkable. There are hypertrophic spurs involving the thoracic spine. The extra thoracic soft tissue structures are unremarkable. Impression: 1: There is no evidence of pulmonary embolism. There is no thoracic aortic aneurysm or dissection. 2: There is interval development of a small to moderate amount of patchy lung consolidation and septal thickening involving the posterior aspect of the right upper lobe and posterior aspects of both lower lobes which is superimposed upon emphysematous lung disease. These findings are concerning for infectious or inflammatory process. 3: There is stable prominent mediastinal and hilar lymphadenopathy. Dictated by: Dictated on workstation # [id number]
[2021-01-21] MEDS ORDERED: AZIT250T12 PO (16:42)
== END 2021-01-21 16:59 | disposition home or self-care (01) ==
LOC: EDUNIT# 10:21 → ER 10:24
DX: R42 Dizziness and giddiness (principal); R25.3 Fasciculation; R94.31 Abnormal electrocardiogram [ECG] [EKG]; R91.8 Other nonspecific abnormal finding of lung field; I10 Essential (primary) hypertension; G89.29 Other chronic pain; M54.9 Dorsalgia, unspecified; E78.00 Pure hypercholesterolemia, unspecified; Z86.73 Personal history of transient ischemic attack (TIA), and cerebral infarction without residual deficits; Z20.822 Contact with and (suspected) exposure to COVID-19; Z79.891 Long term (current) use of opiate analgesic; Z79.899 Other long term (current) drug therapy; Z79.82 Long term (current) use of aspirin
CPT/HCPCS: 70496; 70498; 71275; 80053; 80306; 81000; 82550; 83735; 84443; 84484; 85007; 85027; 85379; 86141; 87636; 93005; 93041; 99284; G0480; 36415; 80320

== ENCOUNTER → 2021-10-28 | Outpatient (CLI) | payer MEDICARE, MEDICAID ==
[~2021-10-28] MED LIST changes: +AZIT250T12 PO; +GADOTERATE 0.5 MMOL/ML (CLARISCAN) 20 ML VIAL IV ONE
--- NOTE | 2021-10-28 16:15 | Diagnostic Imaging Report ---
PROCEDURE: MR imaging of the brain with and without contrast. TECHNIQUE: Multiplanar, multisequence MR imaging of the brain was performed with and without contrast. INDICATION: Memory loss. Stroke. Dementia. COMPARISON: CTA head and neck 01/21/2021. FINDINGS: Mild to moderate generalized parenchymal volume loss. Mild nonspecific T2 hyperintensities in the supratentorial white matter compatible with chronic small vessel ischemic change. Small chronic infarct in the posterior right frontal lobe. No abnormal intracranial enhancement. No restricted water diffusion. No hemosiderin deposition or evidence of intracranial hemorrhage. Normal morphology including the major midline structures, sella, posterior fossa and cerebellar pontine angle. Normal intracranial flow voids. No hydrocephalus or extra-axial fluid collections. The orbits are negative. Mild mucosal thickening in the ethmoid and left maxillary sinus. Mastoid effusions are greater on the left. Normal bone marrow signal. IMPRESSION: 1. No acute intracranial MRI findings. No evidence of acute infarction or hemorrhage. 2. Small chronic infarct in the superior posterior right frontal lobe. 3. Age-appropriate parenchymal volume loss and chronic small vessel ischemic change. Dictated by: Dictated on workstation # [id number]
== END ==
LOC: RAD 12:30
PROVIDERS: ATTEND Family Medicine
DX: G31.1 Senile degeneration of brain, not elsewhere classified (principal); Z86.73 Personal history of transient ischemic attack (TIA), and cerebral infarction without residual deficits
CPT/HCPCS: 70553

== ENCOUNTER 2022-07-26 05:55 | Outpatient (CLI) | payer MEDICARE, MEDICAID ==
[~2022-07-26] VITALS: Ht 182.9 cm; Wt 110.5 kg
[~2022-07-26 05:55] MED LIST changes: -GADOTERATE 0.5 MMOL/ML (CLARISCAN) 20 ML VIAL IV ONE
[2022-07-26] MEDS ORDERED: ASPI-1238 PO (12:04)
[2022-07-26] MEDS ORDERED: MEMA5TAB43 PO (12:04)
== END 2022-07-26 12:06 | disposition home or self-care (01) ==
LOC: PREOP 05:55
PROVIDERS: ATTEND Surgery
DX: Z01.818 Encounter for other preprocedural examination (principal)

== ENCOUNTER 2022-08-07 09:12 | Day surgery (SDC) | payer MEDICARE, MEDICAID ==
[~2022-08-07] VITALS: Ht 182.9 cm; Wt 110.5 kg
[~2022-08-07 09:12] MED LIST changes: +ASPI-1238 PO; +MEMA5TAB43 PO
[2022-08-07] MEDS ORDERED: LACTATED RINGERS 1,000 ML IV STA (09:17)
--- NOTE | 2022-08-07 09:42 | Progress Note-Pre Operative ---
Pre-Operative Progress Note Date of Available H&P: July 25, 2022 Date H&P Reviewed: Aug 07, 2022 Time H&P Reviewed: 09:41 History & Physical: H&P Reviewed, Patient Examed, No changes noted Pre-Operative Diagnosis: hx of polyps ARETHA OLIVARES DO Aug 07, 2022 09:42
[2022-08-07 09:55] VITALS: BP 145/71
[2022-08-07] MEDS ORDERED: MIDAZOLAM 2 MG/2 ML (VERSED) VIAL ONE (11:53)
[2022-08-07] MEDS ORDERED: PROPOFOL INJECTION 50 ML IV ONE (11:53)
[2022-08-07 12:20] VITALS: BP 77/52
--- NOTE | 2022-08-07 12:20 | Anesthesia-General Post-Op ---
MAC Patient Condition Mental Status/LOC: Same as Preop Cardiovascular: Satisfactory Nausea/Vomiting: Absent Respiratory: Satisfactory Pain: Controlled Complications: Absent Post Op Complications Complications None Follow Up Care/Instructions Patient Instructions None needed. Anesthesiology Discharge Order Discharge Order Patient is doing well, no complaints, stable vital signs, no apparent adverse anesthesia problems. No complications reported per nursing. PAULIE COY CRNA Aug 07, 2022 12:20
[2022-08-07 12:23] VITALS: BP 79/52
--- NOTE | 2022-08-07 12:24 | Progress Note-Post Operative ---
Post-Operative Progess Note Surgeon (s)/Recruiting Intern (s) Surgeon ARETHA OLIVARES DO Recruiting Intern: none Pre-Operative Diagnosis hx of polyps Post-Operative Diagnosis Polyp poor prep Procedure & Operative Findings Date of Procedure 08/07/22 Procedure Performed/Findings Flex sig with snare polypectomy Tattooing of intestine PROCEDURE NOTE: After informed consent was obtained, the patient was brought to the endoscopy suite, placed in bed in left lateral decubitus position. He was administered IV sedation by the BELT MAKER HELPER who then monitored his vitals the entire time, heart rate, blood pressure and pulse ox and the scope was inserted. Unfortunately, immediately encountered formed stool. I pushed past the stool in the rectum and found a large flat polyp in the Sigmoid. I used snare to remove 3 large pieces but was unable to get all of it. I then tattooed around the polyp. Next, tried to continue the colonoscopy but again ran into fully formed fecal material at the splenic flexure and elected to stop. Then slowly withdrew the scope down into the sigmoid and then into the rectal vault and took picture of the internal hemorrhoids. The patient tolerated the procedure. He was recovered in endoscopy suite. Recommended for repeat colonoscopy in the next few months. Anesthesia Type IV sedation by BELT MAKER HELPER Estimated Blood Loss Estimated blood loss (mL): scant Specimens/Packing Specimens Removed Sigmoid polyp ARETHA OLIVARES DO Aug 07, 2022 12:24
--- NOTE | 2022-08-07 12:25 | Endoscopy Discharge Instruct ---
Endo Procedure/Findings Findings 1.: Polyp 2.: Other Findings (poor prep) 3.: Internal Hemorrhoids Discharge Instructions - Activity: You might feel a little sleepy until tomorrow. This is due to the medicine you received to relax you. Until tomorrow, you should: NOT drive a car, operate machinery or power tools. NOT drink any alcoholic beverages. NOT make any important decisions or sign importortant papers. Do not return to work until tomorrow, unless otherwise instructed. Resume previous activities tomorrow. Diet: Start by taking liquids. If you tolerate liquids, advance to solid food. 1.: Other Recommendation (colonoscopy in a few months) Notify Physician - If you experience excessive bleeding, unusual abdominal pain, fever, or chest pain, contact your doctor immediately. Follow-Up: Other Follow up in my office in a week ARETHA OLIVARES DO Aug 07, 2022 12:25
[2022-08-07 12:26] VITALS: BP 93/56
[2022-08-07 12:30] VITALS: BP 95/57
[2022-08-07 12:45] VITALS: BP 95/57
== END 2022-08-07 12:57 | disposition home or self-care (01) ==
LOC: ENDO 09:12
PROVIDERS: ATTEND Surgery
DX: Z12.11 Encounter for screening for malignant neoplasm of colon (principal); K63.5 Polyp of colon; K64.8 Other hemorrhoids; Z87.891 Personal history of nicotine dependence

== ENCOUNTER → 2023-01-22 | Outpatient (CLI) | payer MEDICARE, MEDICAID ==
[~2023-01-22] MED LIST changes: +CATHETER FLUSH 10 ML SYR IVP PRN
== END ==
LOC: CARD 06:47
PROVIDERS: ATTEND Family Medicine
DX: Z09 Encounter for follow-up examination after completed treatment for conditions other than malignant neoplasm (principal); Z86.73 Personal history of transient ischemic attack (TIA), and cerebral infarction without residual deficits